=== PATIENT | female | born 1965 | race African-American/Black ===

== ENCOUNTER 2022-07-11 09:30 | Inpatient (IN) | payer SELFPAY ==
[~2022-07-11] VITALS: Ht 170.2 cm; Wt 64.1 kg
[2022-07-11 10:19] LABS: Basophils # (auto) 0 10 ^3/uL (0-0.2); Eosinophils # (auto) 0 10 ^3/uL (0-0.8); Eosinophils % (auto) 0.1 % (0.0-7.0); Hematocrit 35.2 % (36.0-46.0); Monocytes # (auto) 0.5 10 ^3/uL (0-1.3); Neutrophils # (auto) 2.7 10 ^3/uL (1.6-8.6); Nucleated Red Blood Cells % 0.2 %
[2022-07-11 10:21] LABS: Basophils % (auto) 0.8 % (0.0-2.0); Hemoglobin 11.2 g/dL (12.2-16.2); Lymphocytes # (auto) 1.3 10 ^3/uL (0.4-5.4); Lymphocytes % (auto) 27.9 % (10.0-50.0); Mean Corpuscular Hemoglobin 26.2 pg (28.0-32.0); Mean Corpuscular Hgb Conc. 31.9 g/dL (32.0-36.0); Mean Corpuscular Volume 82.1 fL (80.0-100.0); Neutrophils % (auto) 60.2 % (37.0-80.0); Red Blood Cells 4.29 10^6/uL (4.0-5.20); Red Cell Distribution Width 17.1 % (11.8-14.3); White Blood Cell 4.6 10^3/uL (4.4-10.8)
[2022-07-11 10:31] LABS: Albumin 3.7 g/dL (3.4-5.0); Calcium 8.7 mg/dL (8.5-10.1); Potassium 3.6 mmol/L (3.5-5.1)
[2022-07-11 10:38] LABS: Bilirubin, Total 0.4 mg/dL (0.2-1.0); Total Protein 7.5 g/dL (6.4-8.2)
[2022-07-11] MEDS ORDERED: FUROSEMIDE 40 MG/4 ML VIAL IV ONE (14:30)
[2022-07-11] MEDS ORDERED: ACETAMINOPHEN 325 MG TAB PO PRN (15:45)
[2022-07-11] MEDS ORDERED: ONDANSETRON HCL 4 MG/2 ML VIAL IV PRN (15:45)
[2022-07-11] MEDS ORDERED: PANTOPRAZOLE 40 MG/10 ML VIAL INJ IV ONE (15:45)
[2022-07-11 16:16] LABS: Urine Bacteria FEW /hpf (None Seen); Urine Blood Negative /uL (Negative); Urine Specific Gravity 1.005 (1.001-1.035); Urine WBC <1 /hpf (0 - 5)
[2022-07-11 16:32] LABS: Cholesterol 154 mg/dL (< 200); LDL Cholesterol 55 mg/dL (< 100); Triglycerides 65 mg/dL (< 150)
[2022-07-11 16:35] LABS: HDL Cholesterol 97 mg/dL (40-59)
[2022-07-12 05:58] LABS: Albumin 3.4 g/dL (3.4-5.0); Bilirubin, Total 0.4 mg/dL (0.2-1.0); Calcium 8.4 mg/dL (8.5-10.1); Potassium 3.6 mmol/L (3.5-5.1)
[2022-07-12 06:06] LABS: Basophils # (auto) 0 10 ^3/uL (0-0.2); Basophils % (auto) 0.8 % (0.0-2.0); Eosinophils # (auto) 0 10 ^3/uL (0-0.8); Eosinophils % (auto) 0.3 % (0.0-7.0); Hematocrit 33.1 % (36.0-46.0); Lymphocytes # (auto) 1.7 10 ^3/uL (0.4-5.4); Lymphocytes % (auto) 33.5 % (10.0-50.0); Mean Corpuscular Hemoglobin 27.2 pg (28.0-32.0); Mean Corpuscular Hgb Conc. 33.2 g/dL (32.0-36.0); Mean Corpuscular Volume 81.8 fL (80.0-100.0); Monocytes # (auto) 0.4 10 ^3/uL (0-1.3); Monocytes % (auto) 8.7 % (0.0-12.0); Neutrophils # (auto) 2.9 10 ^3/uL (1.6-8.6); Neutrophils % (auto) 56.7 % (37.0-80.0); Nucleated Red Blood Cells % 0.3 %; Red Blood Cells 4.05 10^6/uL (4.0-5.20); Red Cell Distribution Width 16.9 % (11.8-14.3); White Blood Cell 5.1 10^3/uL (4.4-10.8)
[2022-07-12 09:30] VITALS: BP 100/60
[2022-07-12] MEDS ORDERED: PANTOPRAZOLE 40 MG/10 ML VIAL INJ IV SCH (10:00)
[2022-07-12] MEDS ORDERED: ENOXAPARIN SOD 40 MG/0.4 ML SYRINGE SC SCH (10:00)
[2022-07-12] MEDS ORDERED: FUROSEMIDE 20 MG/2 ML VIAL IV SCH (10:00)
[2022-07-12] MEDS ORDERED: METO25TA5 PO (11:20)
[2022-07-12] MEDS ORDERED: LOSA-69 PO ×2 (11:20→11:22)
[2022-07-12 12:30] VITALS: BP 147/79
[2022-07-12] MEDS ORDERED: FURO1TAB33 PO (14:23)
[2022-07-12] MEDS ORDERED: ASPI1TAB20 PO (14:51)
[2022-07-12 15:07] VITALS: BP 147/79
[2022-07-12 16:32] VITALS: BP 142/72
[2022-07-12 16:36] VITALS: BP 142/72
== END 2022-07-12 19:18 | disposition home or self-care (01) | DRG 291 ==
LOC: ER 09:30 → OVERFLOW 15:40 → EAST 07-12 07:49
PROVIDERS: ADMIT Nurse Practitioner Family; ATTEND Nurse Practitioner Acute Care
DX: I11.0 Hypertensive heart disease with heart failure (principal); I50.31 Acute diastolic (congestive) heart failure; U07.1 COVID-19; I82.403 Acute embolism and thrombosis of unspecified deep veins of lower extremity, bilateral; I69.354 Hemiplegia and hemiparesis following cerebral infarction affecting left non-dominant side; D64.9 Anemia, unspecified; E07.9 Disorder of thyroid, unspecified; E03.9 Hypothyroidism, unspecified; Z88.0 Allergy status to penicillin; Z79.82 Long term (current) use of aspirin; Z79.899 Other long term (current) drug therapy; Z80.9 Family history of malignant neoplasm, unspecified; Z90.710 Acquired absence of both cervix and uterus; Z88.8 Allergy status to other drugs, medicaments and biological substances; Z91.14 Patient's other noncompliance with medication regimen; Z98.84 Bariatric surgery status
CPT/HCPCS: 36415; 71045; 80053; 80061; 81001; 83036; 83880; 84443; 84484; 85025; 87426; 93306; 93971; C9113; G0378

== ENCOUNTER 2023-01-15 22:04 | Emergency (ER) | payer BC, OTHER ==
[~2023-01-15] VITALS: Ht 152.4 cm; Wt 64.4 kg
[~2023-01-15 22:04] MED LIST: ASPI1TAB20 PO; FURO1TAB33 PO; LOSA50TA46 PO; METO25TA5 PO
[2023-01-15 22:08] VITALS: BP 152/74; PULSE 69; RESP 16; O2SAT 100
== END 2023-01-16 01:32 | disposition left against medical advice (07) ==
LOC: ER 22:04
DX: N64.4 Mastodynia (principal); Z53.21 Procedure and treatment not carried out due to patient leaving prior to being seen by health care provider

== ENCOUNTER → 2023-11-28 | Outpatient (CLI) | payer OTHER ==
[~2023-11-28] MED LIST changes: +LOSA-534 PO; -LOSA50TA46 PO
== END | disposition home or self-care (01) ==
LOC: XYW 09:20
PROVIDERS: ATTEND Student in an Organized Health Care Education/Training Program
DX: I51.89 Other ill-defined heart diseases (principal); R07.9 Chest pain, unspecified
CPT/HCPCS: 93306

== ENCOUNTER → 2024-01-06 | Outpatient (CLI) | payer OTHER ==
[~2024-01-06] VITALS: Ht 167.6 cm; Wt 66.2 kg
[2024-01-06] MEDS: ADENOSINE 56 MG in GIVE UN-DILUTED 0 ML IV STA (12:49)
== END | disposition home or self-care (01) ==
LOC: XYW 10:26
PROVIDERS: ATTEND Student in an Organized Health Care Education/Training Program
DX: R07.9 Chest pain, unspecified (principal); E78.5 Hyperlipidemia, unspecified; I50.9 Heart failure, unspecified
CPT/HCPCS: 78452; 93017; A9500; J0153

== ENCOUNTER 2024-06-10 11:07 | Inpatient (IN) | payer OTHER, MEDICAID ==
[~2024-06-10] VITALS: Ht 165.1 cm; Wt 55.7 kg
--- NOTE | 2024-06-10 11:34 | ECG ---
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
[2024-06-10] MEDS ORDERED: hydrALAZINE HCL 20 MG/ML VL IV PRN (11:45)
--- NOTE | 2024-06-10 11:48 | ED.PDOC ---
HPI Comments Tomasa Olivera is a 59-year-old female patient who presents to ED with chief complaint of bilateral lower limb swelling and heaviness which started three days ago, associated with intermittent dyspnea and functional class III. Patient says she has been compliant with medication, was seen by PCP as outpatient (Dr. Coleman) who increase dose of furosemide to 40 mg p.o. daily, but did not respond, prompting her visit to the ED. denies chest pain, palpitation, syncope, nausea, vomiting, diarrhea, sick contacts, bleeding, recent travel and other motor or sensory deficits. 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 Family history: Mother had throat cancer Social history: Lives in [place] with [id number]. Denies tobacco, alcohol and other drug abuse Allergies: Diphenhydramine, iodine, penicillin Home medication: Aspirin 81 mg p.o. daily, furosemide 20 mg p.o. daily, losartan 50 mg p.o. daily, metoprolol 25 mg p.o. b.i.d., iron pill Chief Complaint: Extremity Swelling Time Seen by MD: 11:10 Primary Care Provider: JENNIFER Allergies: Coded Allergies: Diphenhydramine (Verified Allergy, Unknown, 01/06/24) Iodine (Verified Allergy, Unknown, 01/06/24) Penicillins (Verified Allergy, Unknown, 01/06/24) Home Meds Active Scripts Aspirin (Aspir-81) 81 Mg Tab, 1 TAB PO DAILY, #30 TAB 5 Refills Prov:BELIA DUNCAN [employer] 07/12/22 Furosemide (Lasix) 20 Mg Tb, 1 TAB PO DAILY, #60 TAB 1 Refill Prov:BELIA DUNCAN [employer] 07/12/22 Reported Medications Losartan Potassium (Losartan Potassium) 50 Mg Tab, 1 TAB PO DAILY, #30 TAB 5 Refills 07/12/22 Metoprolol Tartrate (Metoprolol Tartrate) 25 Mg Tab, 25 MG PO BID for 30 Days, MG 07/12/22 Mode of Arrival: Wheelchair Past Medical History PAST MEDICAL HISTORY: CVA, HTN, Thyroid Surgical History: Hysterectomy DIRECTOR REHABILITATION PROGRAM History: Denies all DIRECTOR REHABILITATION PROGRAM Hx Family History Family History: Family hx of Cancer Social History Smoker: Non-Smoker Alcohol: Denies ETOH Use Drugs: Denies Drug Use Lives In: Home Physical Exam General Appearance: No Apparent Distress, Thin HEENT: Normal ENT Inspection, Pharynx Normal, TMs Normal Neck: Full Range of Motion, Non-Tender, Normal, Normal Inspection Respiratory: Chest Non-Tender, No Accessory Muscle Use, No Respiratory Distress, Rales Cardiovascular: Diastolic Murmur, No Edema, No JVD, No Gallop, Normal Peripheral Pulses, Regular Rate/Rhythm, Systolic Murmur Breast Exam: Deferred Gastrointestinal: No Organomegaly, Non Tender, No Pulsatile Mass, Normal Bowel Sounds, Soft Genitalia: Deferred Pelvic: Deferred Rectal: Deferred Extremities: Leg edema, No calf tenderness, Normal capillary refill, Normal inspection, Normal range of motion, Non-tender, Swelling 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 Was a procedure done?: No CP Differential Dx Differential Diagnosis: Heart Failure, Renal Failure Differential Diagnosis: HTN Essential X-Ray, Labs, Meds, VS Vital Signs Date Time Temp Pulse Resp B/P (MAP) Pulse Ox O2 Delivery O2 Flow Rate FiO2 06/10/24 11:31 58 06/10/24 11:17 97.6 60 18 182/76 (111) 99 170/82 (111) Lab Test 06/10/24 11:49 Range/Units White Blood Count 4.0 L 4.4-10.8 10^3/uL Red Blood Count 3.84 L 4.0-5.20 10^6/uL Hemoglobin 10.4 L 12.2-16.2 g/dL Hematocrit 32.0 L 36.0-46.0 % Mean Corpuscular Volume 83.3 80.0-100.0 fL Mean Corpuscular Hemoglobin 27.1 L 28.0-32.0 pg Mean Corpuscular Hemoglobin Concent 32.5 32.0-36.0 g/dL Red Cell Distribution Width 17.8 H 11.8-14.3 % Platelet Count 138 L 140-450 10^3/uL Mean Platelet Volume 9.4 6.9-10.8 fL Neutrophils (%) (Auto) 57.8 37.0-80.0 % Lymphocytes (%) (Auto) 32.6 10.0-50.0 % Monocytes (%) (Auto) 7.9 0.0-12.0 % Eosinophils (%) (Auto) 0.6 0.0-7.0 % Basophils (%) (Auto) 1.1 0.0-2.0 % Neutrophils # (Auto) 2.3 1.6-8.6 10 ^3/uL Lymphocytes # (Auto) 1.3 0.4-5.4 10 ^3/uL Monocytes # (Auto) 0.3 0-1.3 10 ^3/uL Eosinophils # (Auto) 0 0-0.8 10 ^3/uL Basophils # (Auto) 0 0-0.2 10 ^3/uL Nucleated Red Blood Cells 0.3 % Prothrombin Time 11.5 9.3-11.8 sec Prothrombin Time INR 1.09 0.9-1.15 Activated Partial Thromboplast Time 29.8 24.5-34.5 SEC Sodium Level 141 136-145 mmol/L Potassium Level 4.0 3.5-5.1 mmol/L Chloride Level 108 H 98-107 mmol/L Carbon Dioxide Level 26 20-31 mmol/L Anion Gap 7 5-15 Blood Urea Nitrogen 16 9-23 mg/dL Creatinine 0.93 0.550-1.02 mg/dL Glomerular Filtration Rate Calc 70 >90 mL/min BUN/Creatinine Ratio 17.2 10.0-20.0 Serum Glucose 77 74-106 mg/dL Calcium Level 9.3 8.7-10.4 mg/dL Phosphorus Level 4.1 2.4-5.1 mg/dL Magnesium Level 2.1 1.6-2.6 mg/dL Total Bilirubin 0.6 0.2-1.0 mg/dL Aspartate Amino Transferase (AST) 15 13-40 U/L Alanine Aminotransferase (ALT) < 9 7-40 U/L Alkaline Phosphatase 76 46-116 U/L B-Type Natriuretic Peptide 816.50 0-100 pg/mL Total Protein 7.2 5.7-8.2 g/dL Albumin 4.1 3.2-4.8 g/dL Thyroid Stimulating Hormone (TSH) 2.02 0.55-4.78 uIU/mL X-Ray, Labs, Meds, VS Comment Revealed checks x-ray, vital signs and laboratory workup. BNP above 700. Time of 1ST Reevaluation: 13:56 Reevaluation 1ST: Unchanged Patient Education/Counseling: Diagnosis, Treatment, Prognosis Family Education/Counseling: Diagnosis, Treatment, Prognosis Departure 1 Departure Time of Disposition: 13:56 Impression: Primary Impression: Heart failure Disposition: 09 ADMITTED INPATIENT Condition: Serious Additional Instructions: Patient will required IV diuretics, since increase in p.o. diuretics did not margaret efit patient. She will be admitted Critical Care Note Critical Care Time?: No Stability Stability form required: No Heart Score Heart Score: Heart Score Response (Comments) Value History N/A 0 EKG N/A 0 Age N/A 0 Risk Factors N/A 0 Troponin N/A 0 Total 0 BARRINGTON STRAUSS RESIDENT Jun 10, 2024 11:48
--- NOTE | 2024-06-10 11:52 | DVH ---
EXAM: XY CHEST XRAY 1 VIEW Indication: CHF Technique: Single frontal view of the chest was obtained Comparison: XY CHEST PORTABLE on DOS: 07/11/22 FINDINGS: Lines and Tubes: None Lungs: No focal consolidation. Pleura: No effusion. No pneumothorax. Cardiomediastinal contours: Cardiomegaly. Vascular stent projects over the mediastinum. Tortuous and enlarged aortic shadow. Bones: No acute osseous abnormality. IMPRESSION: Cardiomegaly. No acute cardiopulmonary disease.
[2024-06-10 12:06] LABS: Basophils # (auto) 0 10 ^3/uL (0-0.2); Basophils % (auto) 1.1 % (0.0-2.0); Eosinophils # (auto) 0 10 ^3/uL (0-0.8); Eosinophils % (auto) 0.6 % (0.0-7.0); Hemoglobin 10.4 g/dL (12.2-16.2); Lymphocytes # (auto) 1.3 10 ^3/uL (0.4-5.4); Lymphocytes % (auto) 32.6 % (10.0-50.0); Mean Corpuscular Hemoglobin 27.1 pg (28.0-32.0); Mean Corpuscular Hgb Conc. 32.5 g/dL (32.0-36.0); Mean Corpuscular Volume 83.3 fL (80.0-100.0); Monocytes # (auto) 0.3 10 ^3/uL (0-1.3); Monocytes % (auto) 7.9 % (0.0-12.0); Neutrophils # (auto) 2.3 10 ^3/uL (1.6-8.6); Neutrophils % (auto) 57.8 % (37.0-80.0); Nucleated Red Blood Cells % 0.3 %; Platelet Count (auto) 138 10^3/uL (140-450); Red Blood Cells 3.84 10^6/uL (4.0-5.20); Red Cell Distribution Width 17.8 % (11.8-14.3)
[2024-06-10 12:19] LABS: INR 1.09 (0.9-1.15); Partial Thromboplastin Time 29.8 SEC (24.5-34.5); Prothrombin Time 11.5 sec (9.3-11.8)
[2024-06-10 13:32] LABS: Albumin 4.1 g/dL (3.2-4.8); Alkaline Phosphatase 76 U/L (46-116); Anion Gap 7 (5-15); Aspartate Aminotransferase 15 U/L (13-40); BUN/Creatinine Ratio 17.2 (10.0-20.0); Bilirubin, Total 0.6 mg/dL (0.2-1.0); Blood Urea Nitrogen 16 mg/dL (9-23); Calcium 9.3 mg/dL (8.7-10.4); Carbon Dioxide 26 mmol/L (20-31); Glucose 77 mg/dL (74-106); Magnesium 2.1 mg/dL (1.6-2.6); Phosphorus 4.1 mg/dL (2.4-5.1); Sodium 141 mmol/L (136-145); Total Protein 7.2 g/dL (5.7-8.2)
[2024-06-10 13:37] LABS: Alanine Aminotransferase < 9 U/L (7-40); Chloride 108 mmol/L (98-107)
[2024-06-10] MEDS: LOSARTAN POTASSIUM 50 MG TAB PO ONE (17:34)
[2024-06-10] MEDS: FUROSEMIDE 40 MG/4 ML VIAL IV ONE (17:35)
[2024-06-10 17:45] VITALS: PULSE 61; RESP 18; O2SAT 98
[2024-06-10 17:57] LABS: Urine Bacteria FEW /hpf (None Seen); Urine Blood 1+ /uL (Negative); Urine Clarity Clear (Clear); Urine Color Yellow (Yellow); Urine Mucus FEW (None Seen); Urine Protein, UAD 1+ (Negative); Urine Specific Gravity 1.027 (1.001-1.035); Urine Squamous Epithelial Cell FEW /hpf (<5); Urine Urobilinogen 3 mg/dL (Negative); Urine WBC 3 /HPF (0-5)
[2024-06-10 18:01] LABS: Amphetamine Screen, Urine Neg (NEGATIVE); Barbiturate Scree,Urine Neg (NEGATIVE); Benzodiazephine Screen, Urine Neg (NEGATIVE); Cannabinoid Screen, Urine Neg (NEGATIVE); Cocaine Screen, Urine Neg (NEGATIVE); Opiate Scree,Urine Neg (NEGATIVE); Phencyclidine Screen, Urine Neg (NEGATIVE)
[2024-06-10 19:30] VITALS: PULSE 70; RESP 16; O2SAT 99
[2024-06-10] MEDS: FERROUS SULFATE 325mg EC TAB PO SCH (19:54)
[2024-06-10] MEDS ORDERED: FUROSEMIDE 40 MG/4 ML VIAL IV SCH (22:00)
[2024-06-10] MEDS ORDERED: NITROGLYCERIN 0.4 MG SL TAB SL PRN (22:15)
--- NOTE | 2024-06-10 22:17 | DVHHPRES ---
History of Present Illness Resident Creating Document: MIKE NIDAYE RESDIENT History of Present Illness This is a 59-year-old female with past medical history of hypertension, CVA (with motor deficits on the left side, uses walker for the mobility), COVID-19, thoracic aortic aneurysm (status post endovascular treatment) heart failure with mildly reduced ejection fraction (EF from December 06, 2023 45%) neuropathy, brought to the hospital due to worsening of bilateral lower limb swelling. Per patient, the patient has leg swelling which has worsened since 3 days. She also reports dyspnea, and generalized weakness. Patient denies, chest pain, palpitation, nausea, vomiting, diarrhea, sick contact, any motor or sensory deficits. PMHx:hypertension, CVA (with motor deficits on the left side, uses walker for the mobility), COVID-19, thoracic aortic aneurysm (status post endovascular treatment) heart failure with mildly reduced ejection fraction EF from December 06, 2023 45%) neuropathy PSHx: Aortic aneurysm repair, hysterectomy, Family history: Mother had throat cancer Social history: Patient lives with family at home, denies tobacco, alcohol or any other drug use. Patient use walker for the mobility. Home medication: Aspirin, furosemide, losartan, metoprolol, iron pill Allergic history: Diphenhydramine, iodine, penicillin Review of Systems Review of Systems General: Reports generalized weakness HEENT: No headaches, visiual changes, hearing loss, tinnitus, nasal congestion and discharge, and sore throat. Cardiovascular: Denies chest pain, palpitations, dyspnea on exertion, orthopnea, or claudication. Respiratory: Reports shortness of breaths Gastrointestinal: Denies nausea, vomiting, dysphagia, odynophagia, heartburn, abdominal pain, flatulence, bloating, diarrhea, constipation, change in stool, or blood in stool. Genitourinary: No dysuria, hematuria, discharge, frequency, urgency, nocturia, incontinence, and urinary retention. Endocrine: No heat or cold intolerance, polydipsia, polyuria, and polyphagia. Neurological: No dizziness, extremity weakness and numbness, tremors, gait disturbance, seizures, and memory impairment. Psychiatric: Denies depression, anxiety,or insomnia. Musculoskeletal: Reports bilateral lower limb swelling and heaviness Skin: No rashes, itching, skin lesion, changes in hair, nail, skin texture and breast. Hematologic/Lymphatic: Denies easy bruising, bleeding tendencies, or lymph node enlargement. Allergies: Coded Allergies: Diphenhydramine (Verified Allergy, Unknown, 01/06/24) Iodine (Verified Allergy, Unknown, 01/06/24) Penicillins (Verified Allergy, Unknown, 01/06/24) Medications Current Medications Medications Dose Ordered Sig/Darlene Route Start Time Stop Time Status Last Admin Dose Admin Furosemide 40 mg TID IV 06/10/24 22:00 Aspirin 81 mg DAILY PO 06/11/24 10:00 Losartan Potassium 50 mg DAILY PO 06/11/24 10:00 Metoprolol Succinate 25 mg DAILY PO 06/11/24 10:00 Ferrous Sulfate 325 mg BIDWM PO 06/10/24 18:00 06/10/24 19:54 325 MG Hydralazine HCl 10 mg Q6HP PRN IV 06/10/24 11:45 Exam Vital Signs Vital Signs Date Time Temp Pulse Resp B/P (MAP) Pulse Ox O2 Delivery O2 Flow Rate FiO2 06/10/24 19:30 70 16 99 Room Air* 0 21 06/10/24 19:30 98.9 150/71 (97) 98.9 Exam General Appearance: Alert, Oriented X3, Cooperative, No acute distress HEENT: Atraumatic, PERRLA, EOMI, Mucous membrane moist/pink Respiratory: Bilateral lower zone crackles Cardiovascular: Regular rate, Normal S1, Normal S2, No murmurs, no chest wall tenderness Abdominal: Normal bowel sounds, Soft, No tenderness, No hepatospenomegaly, No masses Extremities: Bilateral lower limb grade 2 pedal edema Skin: No rashes, No breakdown, No significant lesion Neuro: Normal gait, Normal speech, Strength at 5/5 X4 ext, Normal tone, Sensation intact, Cranial nerves 3-12 NL, Reflexes 2+ Psych/Mental Status: Mental status NL, Mood NL Labs/Xrays Labs Test 06/10/24 11:49 06/10/24 11:21 Range/Units White Blood Count 4.0 L 4.4-10.8 10^3/uL Red Blood Count 3.84 L 4.0-5.20 10^6/uL Hemoglobin 10.4 L 12.2-16.2 g/dL Hematocrit 32.0 L 36.0-46.0 % Mean Corpuscular Volume 83.3 80.0-100.0 fL Mean Corpuscular Hemoglobin 27.1 L 28.0-32.0 pg Mean Corpuscular Hemoglobin Concent 32.5 32.0-36.0 g/dL Red Cell Distribution Width 17.8 H 11.8-14.3 % Platelet Count 138 L 140-450 10^3/uL Mean Platelet Volume 9.4 6.9-10.8 fL Neutrophils (%) (Auto) 57.8 37.0-80.0 % Lymphocytes (%) (Auto) 32.6 10.0-50.0 % Monocytes (%) (Auto) 7.9 0.0-12.0 % Eosinophils (%) (Auto) 0.6 0.0-7.0 % Basophils (%) (Auto) 1.1 0.0-2.0 % Neutrophils # (Auto) 2.3 1.6-8.6 10 ^3/uL Lymphocytes # (Auto) 1.3 0.4-5.4 10 ^3/uL Monocytes # (Auto) 0.3 0-1.3 10 ^3/uL Eosinophils # (Auto) 0 0-0.8 10 ^3/uL Basophils # (Auto) 0 0-0.2 10 ^3/uL Nucleated Red Blood Cells 0.3 % Prothrombin Time 11.5 9.3-11.8 sec Prothrombin Time INR 1.09 0.9-1.15 Activated Partial Thromboplast Time 29.8 24.5-34.5 SEC Sodium Level 141 136-145 mmol/L Potassium Level 4.0 3.5-5.1 mmol/L Chloride Level 108 H 98-107 mmol/L Carbon Dioxide Level 26 20-31 mmol/L Anion Gap 7 5-15 Blood Urea Nitrogen 16 9-23 mg/dL Creatinine 0.93 0.550-1.02 mg/dL Glomerular Filtration Rate Calc 70 >90 mL/min BUN/Creatinine Ratio 17.2 10.0-20.0 Serum Glucose 77 74-106 mg/dL Calcium Level 9.3 8.7-10.4 mg/dL Phosphorus Level 4.1 2.4-5.1 mg/dL Magnesium Level 2.1 1.6-2.6 mg/dL Total Bilirubin 0.6 0.2-1.0 mg/dL Aspartate Amino Transferase (AST) 15 13-40 U/L Alanine Aminotransferase (ALT) < 9 7-40 U/L Alkaline Phosphatase 76 46-116 U/L B-Type Natriuretic Peptide 816.50 0-100 pg/mL Total Protein 7.2 5.7-8.2 g/dL Albumin 4.1 3.2-4.8 g/dL Thyroid Stimulating Hormone (TSH) 2.02 0.55-4.78 uIU/mL Urine Color Yellow Yellow Urine Clarity Clear Clear Urine pH 6.0 5.0-9.0 Urine Specific [place] 1.027 1.001-1.035 Urine Protein 1+ H Negative Urine Ketones Trace Negative Urine Blood 1+ H Negative /uL Urine Nitrite Negative Negative Urine Bilirubin Negative Negative Urine Urobilinogen 3 H Negative mg/dL Urine Leukocyte Esterase Negative Negative /uL Urine RBC 22 0 - 4 /hpf Urine Microscopic WBC 3 0-5 /HPF Urine Squamous Epithelial Cells Few <5 /hpf Urine Bacteria Few H None Seen /hpf Urine Mucus Few None Seen Urine Glucose Normal Normal mg/dL Urine Opiates Screen Neg NEGATIVE Urine Fentanyl Screen Neg NEGATIVE Urine Barbiturates Screen Neg NEGATIVE Urine Phencyclidine Screen Neg NEGATIVE Urine Amphetamines Screen Neg NEGATIVE Urine Benzodiazepines Screen Neg NEGATIVE Urine Cocaine Screen Neg NEGATIVE Urine Cannabinoids Screen Neg NEGATIVE Assessment/Plan Assessment/Plan Hypertensive emergency leading to heart failure Acute on chronic heart failure with mildly reduced ejection fraction History of aortic aneurysm, status post endovascular repair History of hypertension Chest x-ray shows cardiomegaly BNP is raised at 816 Check echocardiogram Lasix 40 mg b.i.d. Continue losartan and metoprolol and aspirin Hydralazine p.r.n. Histories of CVA Continue home meds History of chronic anemia Hb is 10.4 Continue iron pill DIET: Cardiac the DVT PROPHYLAXIS: Lovenox CODE STATUS: Goal of care discussed for more than 21 minutes, full code DISPOSITION: Med/surge Patient's status and paln discussed with the patient brother at the bedside. Case discussed with Dr. Brooks Plan discussed with: Patient, Other (RN) Date of Service: Jun 10, 2024 Billing Provider: HIRAL BROOKS MD Common Visit Codes: [id number] INP/OBS CARE (HIGH) MIKE NDIAYE RESDIENT Jun 10, 2024 22:17 HIRAL BROOKS MD Jun 11, 2024 23:10
[2024-06-11] VITALS (11 sets, daily range): BP systolic 112–162; BP diastolic 57–83; PULSE 54–67; RESP 16–18; TEMP 97.3–98.3; O2SAT 95–100
[2024-06-11] MEDS: ENOXAPARIN SOD 40 MG/0.4 ML SYRINGE SC ONE (00:06)
[2024-06-11] MEDS: FUROSEMIDE 40 MG/4 ML VIAL IV ONE (00:06)
[2024-06-11 06:34] LABS: Basophils # (auto) 0 10 ^3/uL (0-0.2); Basophils % (auto) 0.8 % (0.0-2.0); Eosinophils # (auto) 0 10 ^3/uL (0-0.8); Eosinophils % (auto) 0.8 % (0.0-7.0); Hematocrit 31.5 % (36.0-46.0); Hemoglobin 10.4 g/dL (12.2-16.2); Lymphocytes # (auto) 1.4 10 ^3/uL (0.4-5.4); Lymphocytes % (auto) 31.4 % (10.0-50.0); Mean Corpuscular Hemoglobin 27.7 pg (28.0-32.0); Mean Corpuscular Hgb Conc. 33.1 g/dL (32.0-36.0); Mean Corpuscular Volume 83.6 fL (80.0-100.0); Monocytes # (auto) 0.4 10 ^3/uL (0-1.3); Monocytes % (auto) 9.7 % (0.0-12.0); Neutrophils # (auto) 2.6 10 ^3/uL (1.6-8.6); Neutrophils % (auto) 57.3 % (37.0-80.0); Nucleated Red Blood Cells % 0.2 %; Platelet Count (auto) 130 10^3/uL (140-450); Red Blood Cells 3.77 10^6/uL (4.0-5.20); Red Cell Distribution Width 17.4 % (11.8-14.3); White Blood Cell 4.5 10^3/uL (4.4-10.8)
[2024-06-11 06:49] LABS: Alkaline Phosphatase 72 U/L (46-116); Anion Gap 9 (5-15); BUN/Creatinine Ratio 17.6 (10.0-20.0); Blood Urea Nitrogen 16 mg/dL (9-23); Calcium 9.5 mg/dL (8.7-10.4); Carbon Dioxide 28 mmol/L (20-31); Chloride 105 mmol/L (98-107); Glucose 76 mg/dL (74-106); Magnesium 2.1 mg/dL (1.6-2.6); Sodium 142 mmol/L (136-145)
[2024-06-11 06:50] LABS: Albumin 3.9 g/dL (3.2-4.8); Aspartate Aminotransferase 15 U/L (13-40)
[2024-06-11 06:51] LABS: Bilirubin, Total 0.6 mg/dL (0.2-1.0); Potassium 3.5 mmol/L (3.5-5.1); Total Protein 6.9 g/dL (5.7-8.2)
[2024-06-11 06:52] LABS: Alanine Aminotransferase < 9 U/L (7-40)
[2024-06-11] MEDS: FUROSEMIDE 40 MG/4 ML VIAL IV SCH (08:24)
[2024-06-11] MEDS: ASPirin 81 mg TAB PO SCH (08:24)
[2024-06-11] MEDS: LOSARTAN POTASSIUM 50 MG TAB PO SCH (08:25)
[2024-06-11] MEDS: METOPROLOL SUCCINATE XL 50 MG TAB PO SCH ×2 (08:25→22:00)
--- NOTE | 2024-06-11 11:37 | DVH ---
LEFT LOWER EXTREMITY VENOUS DOPPLER CLINICAL HISTORY: dvt TECHNIQUE: Lower extremity venous Doppler study was performed. COMPARISON: US LT UPPER DVT on DOS: 07/11/22 FINDINGS: The left common femoral, superficial femoral, popliteal, posterior tibial veins and trifurcation appe ar patent with normal augmentation, phasicity, compressibility and color-flow. . IMPRESSION: 1. No sonographic evidence of DVT in the left leg. HS:Y
--- NOTE | 2024-06-11 11:53 | DVHSR ---
APPROVED REPORT EXAM: Two-dimensional and M-mode echocardiogram with Doppler and color Doppler. Blood Pressure: 144/78 mmHg INDICATION Heart Failure RISK FACTORS Height: 5'5", Weight: 136 DIMENSIONS LVDd5.0 (3.8-5.7cm)LA (2D)4.2 (1.9-4.0cm)Aortic Root3.7 (2.0-3.7cm) LVDs3.9 (2.5-4.0cm)LA (MM) (1.9-4.0cm)Aortic Cusp Exc1.6 (1.5-2.0cm) EF (%) 50.0 (55-70%)Rt. Atrium4.3 (1.9-4.0cm)Asc. Aorta3.9 cm IVSd0.7 (0.7-1.1cm)RV (D) (1.8-2.4cm) PWd1.0 (0.7-1.1cm) Mitral Valve MitralMitral Stenosis E wave0.70m/sMV Mean GR.mmHg A wave0.96m/sMV Peak GR.mmHg E/A ratio0.72D MVAcm2 DECEL [id number] 1/2 Timems Aortic Valve Aortic ValveAortic Stenosis V11.10m/Lana Mean GR.4mmHg V21.33m/Lana Peak GR.7mmHg LVOT Diameter2.1 (1.8-2.4cm)Doppler AVA2.86cm2 AI P 1/2 Jtbc395.89ms Pulmonic Valve V20.78m/s Tricuspid Valve TR Velocity2.12m/s [id number] LEFT VENTRICLE The left ventricle is of normal size. Wall thickness is normal. Ejection fraction is low normal and is estimated at 50%. There is likely severe hypokinesis of the basal and mid posterior wall. There is grade II diastolic dysfunction. E to E prime ratio is in the normal range. RIGHT VENTRICLE The right ventricle is of normal size. Systolic function is normal. ATRIA The left atrium is moderately to severely dilated in size. Right atrium is moderately to severely di lated in size. MITRAL VALVE Leaflets appear to be of normal structure. There is pfwoexlp-wu-knqaye mitral regurgitation with an eccentric jet that is laterally and posteriorly directed. This is not adequately assessed during the study today and could be under estimated. PULMONIC VALVE Likely normal. TRICUSPID VALVE Normal structure and function. There is mild tricuspid regurgitation. PA systolic pressure is estim ated at 25-30 mm Hg. AORTIC VALVE Normal in structure. There is kfxr-zf-ehmjelay central regurgitation. No significant stenosis. GREAT VESSELS The aortic root measures 3.7 cm at the level of the sinuses of Valsalva. Proximal ascending aorta me asured 3.9 cm. 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 PERICARDIAL EFFUSION There is trace pericardial effusion. IVC is dilated in size and does not collapse normally with insp iration. 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 Normal left ventricular size with low-normal systolic function. Ejection fraction is estimated at 50%. There is likely hypokinesis of the basal and mid posterior wall. Normal right ventricular size and systolic function. Xhqztnlz-[id number]-[id number] biatrial enlargement. Letjupbo-ik-[id number] mitral regurgitation. The jet is eccentric and could be under estimated. Ruph-od-nuaiyatu aortic insufficiency. The aortic root is of normal size. The dissection in the descending aorta was not visualized on an echo done in November of 2023; otherwise, there does not appear to be significant change compared to the prior echo.
--- NOTE | 2024-06-11 14:17 | DVHPNRES ---
Progress Note Date Seen: Jun 11, 2024 Resident Creating Document: JAI PERDOMOMALACHI RESIDENT Medical Necessity Reason Pt with a Central, PICC or Fol: No Subjective Review of Systems Patient is a 59-year-old female with a past medical history of hypertension, thoracic aortic dissection/aneurysm repair in 2019, CVA with residual left-sided weakness, heart failure with mildly reduced ejection fraction 45% according to echo in November 2023 came to the ED with a chief complaint of worsening bilateral lower extremity swelling and shortness of breath. Patient was that about 4 days ago he started to have bilateral lower extremity swelling associated with the dyspnea on exertion and generalized weakness. Patient denied recent flu like symptoms of cough, congestion, fever or chills. Patient denied chest pain, palpitations, nausea, vomiting, abdominal pain. Patient contacted her PCP for bilateral lower extremity swelling who recommended to increase the dose of furosemide but it did not relieve with the symptoms following which she came to the hospital for further evaluation. Past medical history: hypertension, thoracic aortic dissection/aneurysm repair in 2019, CVA with residual left-sided weakness, heart failure with mildly reduced ejection fraction 45%, peripheral neuropathy Past surgical history: Aortic aneurysm/dissection repair, hysterectomy Social history: Patient lives with the family and denies smoking, alcohol, drug use, uses walker for mobility Home medications: Aspirin, furosemide, losartan, metoprolol tartrate Review of systems At the time of examination patient reported no shortness a breath while on room air. Reports her lower extremity swelling has improved and she is feeling better. Echocardiogram reported extensive dissection throughout the visualized descending aorta with flow into lumens which was not visualized on echo done in November 2023 Patient reported since the last 3-4 months she has intermittent episode of chest pain substernal which radiates to the back, she has to sit up and the pain is relieved on its own after sometime. Currently patient does not report of any chest pain or palpitations. Objective vital signs Vital Sign Date Time Temp Pulse Resp B/P (MAP) Pulse Ox O2 Delivery O2 Flow Rate FiO2 06/11/24 09:00 98.1 61 18 162/72 (102) 100 98.1 06/11/24 08:00 Room Air* 0 21 medications Current Medications Medications Dose Ordered Sig/Darlene Route Start Time Stop Time Status Last Admin Dose Admin Aspirin 81 mg DAILY PO 06/11/24 10:00 06/11/24 08:24 81 MG Losartan Potassium 50 mg DAILY PO 06/11/24 10:00 06/11/24 08:25 50 MG Hydralazine HCl 10 mg Q6HP PRN IV 06/10/24 11:45 Nitroglycerin 0.4 mg Q5MINP PRN SL 06/10/24 22:15 Furosemide 40 mg BIDD IV 06/11/24 10:00 06/11/24 08:24 40 MG Enoxaparin Sodium 40 mg DAILY SC 06/12/24 10:00 Metoprolol Tartrate 50 mg BID PO 06/11/24 22:00 Examination Physical Examination Constitutional: Patient was alert and oriented to time, place and person and does not appear to be in any acute distress. Gen - no pallor, no icterus, no cyanosis, no clubbing, no LAD, 1+ pitting edema the bilateral lower extremities more in the left. Skin - Patients skin is warm and dry.. HEENT - normocephalic, atraumatic, moist mucous membranes. Neck - full ROM, no LAD, no JVD Pulmonary - B/L vesicular breath sounds. no crackles , no wheezing cardiovascular - normal S1,S2 heard. no murmurs heard. Right dorsalis pedis 2+, left dorsalis pedis 1+ (left foot has more swelling), bilateral radial pulses us, no radio-radial or radio-femoral delay GI - soft abdomen without tenderness to palpation. no hepatospleenomegaly. B owel sounds normoactive Neurological - right upper and lower extremity strength 5/5, left upper and lower extremity strength 3/5, left wrist drop, no sensory deficit, no facial droop, no speech difficulty. laboratory and microbiology Laboratory Tests 06/11/24 05:44 Test 06/11/24 05:44 Range/Units Serum Glucose 76 74-106 mg/dL Problem List/Assessment/Plan Problem List/Assessment/Plan Acute on chronic heart failure with preserved ejection fraction Hypertensive emergency H/o thoracic aortic aneurysm/dissection repair Descending aortic dissection, new versus chronic - chest x-ray showed cardiomegaly with no consolidation or interstitial edema. - left lower extremity ultrasound shows no DVT - on furosemide 40 mg IV b.i.d. - metoprolol tartrate 50 mg b.i.d. - losartan 50 mg daily - echocardiogram showed There is extensive dissection throughout the visualized descending aorta with flow into lumens, which was not seen on the previous echo in November of 2023. Ejection fraction is estimated at 50%. - CT angio chest ordered 10:00 a.m. on 03/12/2024. as patient is allergic to iodine, prednisone 50 mg to be given 13 hours, 7 hours, 1 hour before the procedure - strict blood pressure control to be maintained. Hydralazine p.r.n. ordered H/o CVA - residual left-sided weakness - on aspirin and atorvastatin Normocytic hypochromic anemia - chronic - continue to monitor H&H DVT prophylaxis: Enoxaparin 40 mg sc daily PUD prophylaxis: Famotidine 20 mg q.12 hours Goals of care discussed with the patient and the daughter for over 25 minutes. Full code Plan discussed with Dr. Zuñiga Plan discussed with: Patient, Daughter My Orders My Orders Orders - BRENDAN PERDOMO Procedure Category Date Status Time Lt Lower Dvt US 06/11/24 Resulted 10:[address] 06/11/24 Logged Contrast 13:23 Metoprolol Tartrate PHA 06/11/24 In Process Tablet (Lopressor Ta 22:00 Date of Service: Jun 11, 2024 Billing Provider: JOSSUE ZUÑIGA MD Common Visit Codes: [id number] INP/OBS CARE(HIGH) BRENDAN PERDOMO RESIDENT Jun 11, 2024 14:16 JOSSUE ZUÑIGA MD Jun 12, 2024 09:10
[2024-06-11] MEDS ORDERED: LABETALOL HCL 20 MG/4 ML VL IV PRN ×2 (17:45→18:30)
[2024-06-11] MEDS: ATORVASTATIN 20 MG TAB PO SCH (21:52)
[2024-06-11] MEDS: FAMOTIDINE 20 MG TAB PO SCH (21:52)
[2024-06-11] MEDS: predniSONE 20 MG TAB PO ONE (21:52)
[2024-06-11] MEDS ORDERED: METOPROLOL TARTRATE 50 MG TAB PO SCH (22:00)
[2024-06-12] VITALS (12 sets, daily range): BP systolic 120–149; BP diastolic 57–72; PULSE 51–66; RESP 16–18; TEMP 97.2–98.4; O2SAT 92–100
[2024-06-12] MEDS: predniSONE 20 MG TAB PO ONE ×2 (02:56→10:00)
[2024-06-12] MEDS: hydrALAZINE HCL 20 MG/ML VL IV ONE (03:01)
[2024-06-12 06:07] LABS: Basophils # (auto) 0 10 ^3/uL (0-0.2); Basophils % (auto) 0.7 % (0.0-2.0); Eosinophils # (auto) 0.1 10 ^3/uL (0-0.8); Eosinophils % (auto) 1.3 % (0.0-7.0); Hematocrit 35.1 % (36.0-46.0); Hemoglobin 11.3 g/dL (12.2-16.2); Lymphocytes # (auto) 0.6 10 ^3/uL (0.4-5.4); Lymphocytes % (auto) 14.3 % (10.0-50.0); Mean Corpuscular Hgb Conc. 32.1 g/dL (32.0-36.0); Mean Corpuscular Volume 84.1 fL (80.0-100.0); Monocytes # (auto) 0.1 10 ^3/uL (0-1.3); Monocytes % (auto) 1.8 % (0.0-12.0); Neutrophils # (auto) 3.6 10 ^3/uL (1.6-8.6); Neutrophils % (auto) 81.9 % (37.0-80.0); Platelet Count (auto) 143 10^3/uL (140-450); Red Blood Cells 4.17 10^6/uL (4.0-5.20); Red Cell Distribution Width 17.3 % (11.8-14.3); White Blood Cell 4.3 10^3/uL (4.4-10.8)
[2024-06-12 06:19] LABS: Chloride 103 mmol/L (98-107); Potassium 3.9 mmol/L (3.5-5.1); Sodium 139 mmol/L (136-145)
[2024-06-12 06:20] LABS: Anion Gap 10 (5-15); Carbon Dioxide 26 mmol/L (20-31)
[2024-06-12 06:21] LABS: Calcium 9.7 mg/dL (8.7-10.4)
[2024-06-12 06:25] LABS: BUN/Creatinine Ratio 15.3 (10.0-20.0); Blood Urea Nitrogen 15 mg/dL (9-23)
[2024-06-12 06:26] LABS: Glucose 135 mg/dL (74-106)
[2024-06-12] MEDS ORDERED: IOHEXOL 350 MG/ML 100ML IJ ONE (09:36)
[2024-06-12] MEDS: ENOXAPARIN SOD 40 MG/0.4 ML SYRINGE SC SCH (10:00)
[2024-06-12] MEDS: FUROSEMIDE 40 MG/4 ML VIAL IV SCH (10:13)
--- NOTE | 2024-06-12 12:21 | DVH ---
History: descending aortic dissection reported on echo Comparison: Chest X-ray of 06/10/2024 TECHNIQUE: Using a slice CT scanner volumetric data acquisition of chest, abdomen and pelvis was obta ined following intravenous administration of intravenous 100 ml contrast without any reported adverse effects. Axial images were reconstructed and additional sagittal and coronal images were reformatted . 3D/MIP images were performed and reviewed for reporting. Radiation dose Information: CT Dose: CTDI volume is 8.84 mGy. Dose-length product is 326.6 mGy*cm Findings: Chest: Pulmonary Arteries: There are no filling defects within main pulmonary arteries. There is normal dim ensional of main PA. Lungs: There is no peripheral pulmonary infarction, consolidation, pleural effusion, or right heart s train. There is no pneumothorax or pneumomediastinum. Aorta: There is a large aortic dissection well visualized on axial images 247 through 31. The dissect ion demonstrates contrast in both the true and false lumens distally. More proximally, beginning at t he level of the mid to distal thoracic aorta, the false lumen demonstrates mild inhomogeneous density although markedly less dense than that of the true lumen. There is no aortic dissection involving th e ascending aorta. The right subclavian artery demonstrates no dissection. The origins of the great v essels arising from the aorta demonstrate no dissection. The distal abdominal aorta is not visualized . The renal arteries are not visualized as this is a CT scan of the chest. IMPRESSION: 1. Descending thoracic aortic dissection without involvement of the ascending aorta and great vessels . The dissection extends into the abdominal aorta which is incompletely visualized. CT angiogram of t he abdominal aorta is recommended for further assessment. 2. Multiple attempts were made to reach the referring physician. 3. All CT scans at this medical facility are performed using dose modulation techniques as appropriat e to a performed exam including the following: Automated exposure control was utilized; Adjustment of the MA And/or KV according to patient size; And use of iterative reconstruction technique.
[2024-06-12] MEDS: LABETALOL HCL 20 MG/4 ML VL IV PRN (13:04)
[2024-06-12] MEDS: NIFEdipine ER 30 MG TAB PO SCH (13:56)
--- NOTE | 2024-06-12 14:48 | DVH ---
EXAM: CT Abdomen and Pelvis Without Intravenous Contrast CLINICAL INDICATION: ABDOMINAL AORTIC DISSECTION TECHNIQUE: Axial computed tomography images of the abdomen and pelvis without intravenous contrast. This CT exam was performed using one or more of the following dose reduction techniques: automated exposure control, adjustment of the mA and/or kV according to patient size, and/or use of iterative r econstruction technique. RADIATION DOSE: CTDlvol= CTDIvol mGy, DLP= 609.95 mGy-cm COMPARISON: None FINDINGS: LUNG BASES: Unremarkable. No mass. No consolidation. ABDOMEN: LIVER: Hepatomegaly. GALLBLADDER AND BILE DUCTS: Cholelithiasis. No ductal dilation. PANCREAS: Unremarkable. No ductal dilation. SPLEEN: Unremarkable. No splenomegaly. ADRENALS: Unremarkable. No mass. KIDNEYS AND URETERS: Unremarkable. No obstructing stones. No hydronephrosis. STOMACH AND BOWEL: Fecal retention in the colon consistent with constipation. Colonic diverticulosi s without acute diverticulitis. No obstruction. PELVIS: APPENDIX: No findings to suggest acute appendicitis. BLADDER: Unremarkable. No stones. REPRODUCTIVE: Unremarkable as visualized. ABDOMEN and PELVIS: INTRAPERITONEAL SPACE: Unremarkable. No free air. No significant fluid collection. BONES/JOINTS: No acute fracture. No dislocation. SOFT TISSUES: Unremarkable. VASCULATURE: Descending aortic aneurysm with indwelling stent. Contrast extravasation or dissection can not be evaluated. This is not a dedicated CT angiogram. Contrast is noted in the excretory phas e and in the urinary bladder. LYMPH NODES: Unremarkable. No enlarged lymph nodes. OTHER FINDINGS: . . IMPRESSION: 1. Descending aortic aneurysm with indwelling stent. Contrast extravasation or dissection can not be evaluated. This is not a dedicated CT angiogram. Contrast is noted in the excretory phase and in t he urinary bladder. 2. Hepatomegaly. 3. Cholelithiasis. 4. Fecal retention in the colon consistent with constipation. 5. Colonic diverticulosis without acute diverticulitis.
--- NOTE | 2024-06-12 15:29 | DVHDSRES ---
Discharge Summary Date of Admission Resident Creating Document: JUSTUS GAFFNEY RESIDENT Jun 10, 2024 at 22:15 Date of Discharge: Jun 12, 2024 Admitting Diagnosis Descending thoracic aortic dissection Labs/Diagnostic Data: Laboratory Results Test 06/12/24 05:38 06/11/24 05:44 06/10/24 11:49 06/10/24 11:21 White Blood Count 4.3 10^3/uL (4.4-10.8) Red Blood Count 4.17 10^6/uL (4.0-5.20) Hemoglobin 11.3 g/dL (12.2-16.2) Hematocrit 35.1 % (36.0-46.0) Mean Corpuscular Volume 84.1 fL (80.0-100.0) Mean Corpuscular Hemoglobin 27.0 pg (28.0-32.0) Mean Corpuscular Hemoglobin Concent 32.1 g/dL (32.0-36.0) Red Cell Distribution Width 17.3 % (11.8-14.3) Platelet Count 143 10^3/uL (140-450) Mean Platelet Volume 9.5 fL (6.9-10.8) Neutrophils (%) (Auto) 81.9 % (37.0-80.0) Lymphocytes (%) (Auto) 14.3 % (10.0-50.0) Monocytes (%) (Auto) 1.8 % (0.0-12.0) Eosinophils (%) (Auto) 1.3 % (0.0-7.0) Basophils (%) (Auto) 0.7 % (0.0-2.0) Neutrophils # (Auto) 3.6 10 ^3/uL (1.6-8.6) Lymphocytes # (Auto) 0.6 10 ^3/uL (0.4-5.4) Monocytes # (Auto) 0.1 10 ^3/uL (0-1.3) Eosinophils # (Auto) 0.1 10 ^3/uL (0-0.8) Basophils # (Auto) 0 10 ^3/uL (0-0.2) Nucleated Red Blood Cells 0.0 % Sodium Level 139 mmol/L (136-145) Potassium Level 3.9 mmol/L (3.5-5.1) Chloride Level 103 mmol/L (98-107) Carbon Dioxide Level 26 mmol/L (20-31) Anion Gap 10 (5-15) Blood Urea Nitrogen 15 mg/dL (9-23) Creatinine 0.98 mg/dL (0.550-1.02) Glomerular Filtration Rate Calc 66 mL/min (>90) BUN/Creatinine Ratio 15.3 (10.0-20.0) Serum Glucose 135 mg/dL (74-106) Calcium Level 9.7 mg/dL (8.7-10.4) Magnesium Level 2.1 mg/dL (1.6-2.6) Total Bilirubin 0.6 mg/dL (0.2-1.0) Aspartate Amino Transferase (AST) 15 U/L (13-40) Alanine Aminotransferase (ALT) < 9 U/L (7-40) Alkaline Phosphatase 72 U/L (46-116) B-Type Natriuretic Peptide 520.01 pg/mL (0-100) Total Protein 6.9 g/dL (5.7-8.2) Albumin 3.9 g/dL (3.2-4.8) Prothrombin Time 11.5 sec (9.3-11.8) Prothrombin Time INR 1.09 (0.9-1.15) Activated Partial Thromboplast Time 29.8 SEC (24.5-34.5) Phosphorus Level 4.1 mg/dL (2.4-5.1) Thyroid Stimulating Hormone (TSH) 2.02 uIU/mL (0.55-4.78) Urine Color Yellow (Yellow) Urine Clarity Clear (Clear) Urine pH 6.0 (5.0-9.0) Urine Specific [place] 1.027 (1.001-1.035) Urine Protein 1+ (Negative) Urine Ketones Trace (Negative) Urine Blood 1+ /uL (Negative) Urine Nitrite Negative (Negative) Urine Bilirubin Negative (Negative) Urine Urobilinogen 3 mg/dL (Negative) Urine Leukocyte Esterase Negative /uL (Negative) Urine RBC 22 /hpf (0 - 4) Urine Microscopic WBC 3 /HPF (0-5) Urine Squamous Epithelial Cells Few /hpf (<5) Urine Bacteria Few /hpf (None Seen) Urine Mucus Few (None Seen) Urine Glucose Normal mg/dL (Normal) Urine Opiates Screen Neg (NEGATIVE) Urine Fentanyl Screen Neg (NEGATIVE) Urine Barbiturates Screen Neg (NEGATIVE) Urine Phencyclidine Screen Neg (NEGATIVE) Urine Amphetamines Screen Neg (NEGATIVE) Urine Benzodiazepines Screen Neg (NEGATIVE) Urine Cocaine Screen Neg (NEGATIVE) Urine Cannabinoids Screen Neg (NEGATIVE) Other Laboratory Tests 06/12/24 05:38 Brief Hx & Hospital Course: This is a 59-year-old female with a history of hypertension, thoracic aortic dissection/aneurysm repair (2019), CVA with residual left-sided weakness, heart failure with reduced ejection fraction (EF 50%), severe mitral regurgitation and peripheral neuropathy, who presented with bilateral lower extremity swelling, dyspnea on exertion, and generalized weakness. Imaging revealed an extensive thoracic aortic dissection with flow into lumens not visualized on previous studies. Cardiac workup estimated EF at 50%, and CT angiography confirmed the findings. Strict blood pressure management was initiated with losartan, nifedipine, furosemide, labetalol and metoprolol. The patients condition requires transfer to a higher level of care for vascular surgery evaluation, as no vascular surgeon was available onsite. Goals of care were discussed with the patient and her family. Prednisone was administered due to iodine allergy before imaging. Physical Examination Constitutional: Patient was alert and oriented to time, place and person and does not appear to be in any acute distress. Gen - no pallor, no icterus, no cyanosis, no clubbing, no LAD, 1+ pitting edema the bilateral lower extremities more in the left. Skin - Patients skin is warm and dry.. HEENT - normocephalic, atraumatic, moist mucous membranes. Neck - full ROM, no LAD, no JVD Pulmonary - B/L vesicular breath sounds. no crackles , no wheezing cardiovascular - normal S1,S2 heard. no murmurs heard. Right dorsalis pedis 2+, left dorsalis pedis 1+ (left foot has more swelling), bilateral radial pulses us, no radio-radial or radio-femoral delay GI - soft abdomen without tenderness to palpation. no hepatospleenomegaly. B owel sounds normoactive Neurological - right upper and lower extremity strength 5/5, left upper and lower extremity strength 3/5, left wrist drop, no sensory deficit, no facial droop, no speech difficulty. Case discussed with Dr Zuñiga Time spent on care 23 min Operations or Procedures APPROVED REPORT EXAM: Two-dimensional and M-mode echocardiogram with Doppler and color Doppler. Blood Pressure: 144/78 mmHg INDICATION Heart Failure RISK FACTORS Height: 5'5", Weight: 136 DIMENSIONS LVDd 5.0 (3.8-5.7cm) LA (2D) 4.2 (1.9-4.0cm) Aortic Root 3.7 (2.0- 3.7cm) LVDs 3.9 (2.5-4.0cm) LA (MM) (1.9-4.0cm) Aortic Cusp Exc 1.6 (1.5- 2.0cm) EF (%) 50.0 (55-70%) Rt. Atrium 4.3 (1.9-4.0cm) Asc. Aorta 3.9 cm IVSd 0.7 (0.7-1.1cm) RV (D) (1.8-2.4cm) PWd 1.0 (0.7-1.1cm) Mitral Valve Mitral Mitral Stenosis E wave 0.70m/s MV Mean GR. mmHg A wave 0.96m/s MV Peak GR. mmHg E/A ratio 0.7 2D MVA cm2 DECEL Time 142ms PRESS 1/2 Time ms Aortic Valve Aortic Valve Aortic Stenosis V1 1.10m/s AO Mean GR. 4mmHg V2 1.33m/s AO Peak GR. 7mmHg LVOT Diameter 2.1 (1.8-2.4cm) Doppler KIM 2.86cm2 AI P 1/2 Time 483.89ms Pulmonic Valve V2 0.78m/s Tricuspid Valve TR Velocity 2.12m/s RVSP 26mmHg LEFT VENTRICLE The left ventricle is of normal size. Wall thickness is normal. Ejection fraction is low normal and is estimated at 50%. There is likely severe hypokinesis of the basal and mid posterior wall. There is grade II diastolic dysfunction. E to E prime ratio is in the normal range. RIGHT VENTRICLE The right ventricle is of normal size. Systolic function is normal. ATRIA The left atrium is moderately to severely dilated in size. Right atrium is moderately to severely dilated in size. MITRAL VALVE Leaflets appear to be of normal structure. There is rerpjkpu-lg-zbdrkp mitral regurgitation with an eccentric jet that is laterally and posteriorly directed. This is not adequately assessed during the study today and could be under estimated. PULMONIC VALVE Likely normal. TRICUSPID VALVE Normal structure and function. There is mild tricuspid regurgitation. PA systolic pressure is estimated at 25-30 mm Hg. AORTIC VALVE Normal in structure. There is nfvs-gc-nznyjtuy central regurgitation. No significant stenosis. GREAT VESSELS The aortic root measures 3.7 cm at the level of the sinuses of Valsalva. Proximal ascending aorta measured 3.9 cm. 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 PERICARDIAL EFFUSION There is trace pericardial effusion. IVC is dilated in size and does not collapse normally with inspiration. 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 Normal left ventricular size with low-normal systolic function. Ejection fraction is estimated at 50%. There is likely hypokinesis of the basal and mid posterior wall. Normal right ventricular size and systolic function. Sutlwmcb-ys-hobbfe biatrial enlargement. Rzmmotmj-re-nxknvk mitral regurgitation. The jet is eccentric and could be under estimated. Dfsu-tn-eoxxvwon aortic insufficiency. The aortic root is of normal size. The dissection in the descending aorta was not visualized on an echo done in November of 2023; otherwise, there does not appear to be significant change compared to the prior echo. I did speak to the nurse from the emergency room regarding this patient. Discussion included the fact that the renal arteries are not visualized on this study. I strongly recommended that a vascular surgeon be consulted immediately. Note is made that findings may be related to an endoleak. Angiography should be strongly considered after consultation with vascular surgeon. For evaluation of the renal arteries, a CT noncontrast study can be attempted. If this is of no help, further assessment could be performed with MR angiography if clinically indicated. Please note that my personal cell phone number was given by me to the nurse. ADDENDUM # 1 History: descending aortic dissection reported on echo Comparison: Chest X-ray of 06/10/2024 TECHNIQUE: Using a slice CT scanner volumetric data acquisition of chest, abdomen and pelvis was obtained following intravenous administration of intravenous 100 ml contrast without any reported adverse effects. Axial images were reconstructed and additional sagittal and coronal images were reformatted. 3D/MIP images were performed and reviewed for reporting. Radiation dose Information: CT Dose: CTDI volume is 8.84 mGy. Dose-length product is 326.6 mGy*cm Findings: Chest: Pulmonary Arteries: There are no filling defects within main pulmonary arteries. There is normal dimensional of main PA. Lungs: There is no peripheral pulmonary infarction, consolidation, pleural effusion, or right heart strain. There is no pneumothorax or pneumomediastinum. Aorta: There is a large aortic dissection well visualized on axial images 247 through 31. The dissection demonstrates contrast in both the true and false lumens distally. More proximally, beginning at the level of the mid to distal thoracic aorta, the false lumen demonstrates mild inhomogeneous density although markedly less dense than that of the true lumen. There is no aortic dissection involving the ascending aorta. The right subclavian artery demonstrates no dissection. The origins of the great vessels arising from the aorta demonstrate no dissection. The distal abdominal aorta is not visualized. The renal arteries are not visualized as this is a CT scan of the chest. IMPRESSION: 1. Descending thoracic aortic dissection without involvement of the ascending aorta and great vessels. The dissection extends into the abdominal aorta which is incompletely visualized. CT angiogram of the abdominal aorta is recommended for further assessment. 2. Multiple attempts were made to reach the referring physician. 3. All CT scans at this medical facility are performed using dose modulation techniques as appropriate to a performed exam including the following: Automated exposure control was utilized; Adjustment of the MA And/or KV according to patient size; And use of iterative reconstruction technique. ORIGINAL REPORT History: descending aortic dissection reported on echo Comparison: Chest X-ray of 06/10/2024 TECHNIQUE: Using a slice CT scanner volumetric data acquisition of chest, abdomen and pelvis was obtained following intravenous administration of intravenous 100 ml contrast without any reported adverse effects. Axial images were reconstructed and additional sagittal and coronal images were reformatted. 3D/MIP images were performed and reviewed for reporting. Radiation dose Information: CT Dose: CTDI volume is 8.84 mGy. Dose-length product is 326.6 mGy*cm Findings: Chest: Pulmonary Arteries: There are no filling defects within main pulmonary arteries. There is normal dimensional of main PA. Lungs: There is no peripheral pulmonary infarction, consolidation, pleural effusion, or right heart strain. There is no pneumothorax or pneumomediastinum. Aorta: There is a large aortic dissection well visualized on axial images 247 through 31. The dissection demonstrates contrast in both the true and false lumens distally. More proximally, beginning at the level of the mid to distal thoracic aorta, the false lumen demonstrates mild inhomogeneous density although markedly less dense than that of the true lumen. There is no aortic dissection involving the ascending aorta. The right subclavian artery demonstrates no dissection. The origins of the great vessels arising from the aorta demonstrate no dissection. The distal abdominal aorta is not visualized. The renal arteries are not visualized as this is a CT scan of the chest. IMPRESSION: 1. Descending thoracic aortic dissection without involvement of the ascending aorta and great vessels. The dissection extends into the abdominal aorta which is incompletely visualized. CT angiogram of the abdominal aorta is recommended for further assessment. 2. Multiple attempts were made to reach the referring physician. 3. All CT scans at this medical facility are performed using dose modulation techniques as appropriate to a performed exam including the following: Automated exposure control was utilized; Adjustment of the MA And/or KV according to patient size; And use of iterative reconstruction technique. EXAM: CT Abdomen and Pelvis Without Intravenous Contrast CLINICAL INDICATION: ABDOMINAL AORTIC DISSECTION TECHNIQUE: Axial computed tomography images of the abdomen and pelvis without intravenous contrast. This CT exam was performed using one or more of the following dose reduction techniques: automated exposure control, adjustment of the mA and/or kV according to patient size, and/or use of iterative reconstruction technique. RADIATION DOSE: CTDlvol= CTDIvol mGy, DLP= 609.95 mGy-cm COMPARISON: None FINDINGS: LUNG BASES: Unremarkable. No mass. No consolidation. ABDOMEN: LIVER: Hepatomegaly. GALLBLADDER AND BILE DUCTS: Cholelithiasis. No ductal dilation. PANCREAS: Unremarkable. No ductal dilation. SPLEEN: Unremarkable. No splenomegaly. ADRENALS: Unremarkable. No mass. KIDNEYS AND URETERS: Unremarkable. No obstructing stones. No hydronephrosis. STOMACH AND BOWEL: Fecal retention in the colon consistent with constipation. Colonic diverticulosis without acute diverticulitis. No obstruction. PELVIS: APPENDIX: No findings to suggest acute appendicitis. BLADDER: Unremarkable. No stones. REPRODUCTIVE: Unremarkable as visualized. ABDOMEN and PELVIS: INTRAPERITONEAL SPACE: Unremarkable. No free air. No significant fluid collection. BONES/JOINTS: No acute fracture. No dislocation. SOFT TISSUES: Unremarkable. VASCULATURE: Descending aortic aneurysm with indwelling stent. Contrast extravasation or dissection can not be evaluated. This is not a dedicated CT angiogram. Contrast is noted in the excretory phase and in the urinary bladder. LYMPH NODES: Unremarkable. No enlarged lymph nodes. OTHER FINDINGS: . . IMPRESSION: 1. Descending aortic aneurysm with indwelling stent. Contrast extravasation or dissection can not be evaluated. This is not a dedicated CT angiogram. Contrast is noted in the excretory phase and in the urinary bladder. 2. Hepatomegaly. 3. Cholelithiasis. 4. Fecal retention in the colon consistent with constipation. 5. Colonic diverticulosis without acute diverticulitis. Condition at Discharge: Higher Level of Care Final Diagnosis/Problems List Descending thoracic aortic dissection without involvement of the ascending aorta and great vessels Acute on chronic heart failure with reduced ejection fraction (patient has severe mitral regurgitation) Hypertensive emergency resolved H/o thoracic aortic aneurysm/dissection repair H/o CVA Jzgqloep-ji-brwtvv biatrial enlargement. Ebofuces-gf-hlwyvr mitral regurgitation Discharge Disposition: Acute Care Facility Discharge Instruct/Medications Diet: Cardiac 2g Na,low cholest Activity: Bed rest Follow Up/Referral: patient will need vascular surgery assesment Medications: according to facility Discharge Statement: "Patient was advised to return to the ER or call 911 if any headaches, dizziness, shortness of breath, chest pain, abdominal pain, bleeding, fevers, or worsening of medical condition. Patient was counseled about treatment plan, medications, possible side effects, patientverbalized understanding. All questions were answered to the best of my ability. This discharge took greater then 30 minutes in planning, reviewing documentation, counseling the patient, and discussing with other team members." ASSESSMENT ASSESSMENT Assessment descending thoracic aortic disection Date of Service: Jun 12, 2024 Billing Provider: JOSSUE ZUÑIGA MD Common Visit Codes: 30572-UOT/OBS DISCH DAY >30min JUSTUS GAFFNEY RESIDENT Jun 12, 2024 15:29 JOSSUE ZUÑIGA MD Jun 12, 2024 21:57
[2024-06-12] MEDS: METOPROLOL TARTRATE 50 MG TAB PO SCH (21:45)
--- NOTE | 2024-06-12 22:35 | DVHPN2 ---
Objective Vitals Vital Signs Date Time Temp Pulse Resp B/P (MAP) Pulse Ox O2 Delivery O2 Flow Rate FiO2 06/12/24 21:45 98 111/59 06/12/24 21:00 98.0 17 100 98.0 06/12/24 08:10 Room Air* 0 21 Intake/Output Intake and Output 06/12/24 07:00 Intake Total 1210 ml Output Total 2 ml Balance 1208 ml Intake Oral 1210 ml Output Stool Total 2 ml # Voids 13 Medications Current Medications Medications Dose Ordered Sig/Darlene Route Start Time Stop Time Status Last Admin Dose Admin Aspirin 81 mg DAILY PO 06/11/24 10:00 06/12/24 10:12 81 MG Nitroglycerin 0.4 mg Q5MINP PRN SL 06/10/24 22:15 Enoxaparin Sodium 40 mg DAILY SC 06/12/24 10:00 Atorvastatin Calcium 40 mg HS PO 06/11/24 22:00 06/12/24 21:45 40 MG Famotidine 20 mg Q12HR PO 06/11/24 22:00 06/12/24 21:45 20 MG Furosemide 40 mg DAILY IV 06/12/24 10:00 06/12/24 10:13 40 MG Labetalol HCl 10 mg Q2HPRN PRN IV 06/11/24 18:30 06/12/24 18:24 10 MG Metoprolol Tartrate 50 mg BID PO 06/12/24 22:00 06/12/24 21:45 50 MG Nifedipine 60 mg DAILY PO 06/12/24 13:00 06/12/24 13:56 60 MG Losartan Potassium 100 mg DAILY PO 06/13/24 10:00 Laboratory Results Laboratory Tests 06/12/24 05:38 Chemistry Test 06/12/24 05:38 Calcium Level 9.7 mg/dL (8.7-10.4) Urinalysis Test 06/10/24 11:21 Urine Color Yellow (Yellow) Urine Clarity Clear (Clear) Urine pH 6.0 (5.0-9.0) Urine Specific [place] 1.027 (1.001-1.035) Urine Protein 1+ (Negative) H Urine Ketones Trace (Negative) Urine Blood 1+ /uL (Negative) H Urine Nitrite Negative (Negative) Urine Bilirubin Negative (Negative) Urine Urobilinogen 3 mg/dL (Negative) H Urine Leukocyte Esterase Negative /uL (Negative) Urine RBC 22 /hpf (0 - 4) Urine Microscopic WBC 3 /HPF (0-5) Urine Squamous Epithelial Cells Few /hpf (<5) Urine Bacteria Few /hpf (None Seen) H Urine Mucus Few (None Seen) Urine Glucose Normal mg/dL (Normal) JOSSUE NOLASCO MD Jun 12, 2024 22:35
[2024-06-13] VITALS (15 sets, daily range): BP systolic 103–121; BP diastolic 37–86; PULSE 54–68; RESP 16–20; TEMP 97.7–98.2; O2SAT 92–100
[2024-06-13 07:23] LABS: Basophils # (auto) 0 10 ^3/uL (0-0.2); Basophils % (auto) 0.5 % (0.0-2.0); Eosinophils # (auto) 0 10 ^3/uL (0-0.8); Hematocrit 33.6 % (36.0-46.0); Hemoglobin 10.9 g/dL (12.2-16.2); Lymphocytes # (auto) 0.7 10 ^3/uL (0.4-5.4); Lymphocytes % (auto) 13.1 % (10.0-50.0); Mean Corpuscular Hemoglobin 26.9 pg (28.0-32.0); Mean Corpuscular Hgb Conc. 32.3 g/dL (32.0-36.0); Mean Corpuscular Volume 83.3 fL (80.0-100.0); Monocytes # (auto) 0.2 10 ^3/uL (0-1.3); Monocytes % (auto) 2.7 % (0.0-12.0); Neutrophils # (auto) 4.8 10 ^3/uL (1.6-8.6); Neutrophils % (auto) 83.7 % (37.0-80.0); Platelet Count (auto) 138 10^3/uL (140-450); Red Blood Cells 4.03 10^6/uL (4.0-5.20); Red Cell Distribution Width 17.4 % (11.8-14.3); White Blood Cell 5.7 10^3/uL (4.4-10.8)
[2024-06-13 07:38] LABS: Alanine Aminotransferase < 9 U/L (7-40); Albumin 4.1 g/dL (3.2-4.8); Alkaline Phosphatase 70 U/L (46-116); Anion Gap 10 (5-15); Aspartate Aminotransferase 10 U/L (13-40); BUN/Creatinine Ratio 23.2 (10.0-20.0); Bilirubin, Total 0.6 mg/dL (0.2-1.0); Blood Urea Nitrogen 22 mg/dL (9-23); Calcium 9.7 mg/dL (8.7-10.4); Carbon Dioxide 26 mmol/L (20-31); Chloride 102 mmol/L (98-107); Glucose 93 mg/dL (74-106); Potassium 3.4 mmol/L (3.5-5.1); Sodium 138 mmol/L (136-145)
[2024-06-13] MEDS: POTASSIUM CHL 20 Meq TABLET PO ONE (09:28)
[2024-06-13] MEDS ORDERED: NIFEdipine ER 30 MG TAB PO SCH (10:00)
[2024-06-13] MEDS: POTASSIUM CHL 20 Meq TABLET PO SCH (10:36)
[2024-06-13] MEDS: LOSARTAN POTASSIUM 50 MG TAB PO SCH (10:38)
[2024-06-13] MEDS ORDERED: MIDAZOLAM HCL 2MG/2ML 2ml VIAL (1mg/ml) ONE (13:06)
[2024-06-13] MEDS ORDERED: fentaNYL CITRATE 100 MCG/2 ML VL ONE (13:06)
[2024-06-13] MEDS ORDERED: HYDROmorphone HCL 2 MG/ML VL/or syr ONE (13:06)
[2024-06-13] MEDS ORDERED: PROPOFOL 10 MG/ML 20 ML IV ONE (13:07)
[2024-06-13] MEDS ORDERED: LIDOCAINE 2% (LOCAL ANESTH.) PF 5ml SDV ONE (13:07)
[2024-06-13] MEDS ORDERED: GLYCOPYRROLATE 0.2 MG/ML 1ML VIAL ONE (13:07)
[2024-06-13] MEDS ORDERED: DexAMETHasone SOD PHOS 10MG/1ML VIAL INJ ONE (13:07)
[2024-06-13] MEDS ORDERED: ONDANSETRON HCL 4 MG/2 ML VIAL ONE (13:07)
[2024-06-13] MEDS ORDERED: KETOROLAC TROMETH 30 MG/ML 1ML VIAL ONE (13:07)
--- NOTE | 2024-06-13 15:33 | DVHPNRES ---
Progress Note Date Seen: Jun 13, 2024 Resident Creating Document: JHAJJBRENDAN RESIDENT Medical Necessity Reason Pt with a Central, PICC or Fol: No Subjective Review of Systems Review of systems Patient seen and examined at the bedside Patient is in no acute distress Blood pressure maintained with a goal SBP less than 130 mmHg Patient denied chest pain, shortness of breath, palpitations at present. Reports tolerating food well Objective vital signs Vital Sign Date Time Temp Pulse Resp B/P (MAP) Pulse Ox O2 Delivery O2 Flow Rate FiO2 06/13/24 14:24 63 16 107/63 (78) 06/13/24 13:00 97.9 100 97.9 06/13/24 08:10 Room Air* 0 21 Total Intake and Output 06/12/24 06/12/24 06/13/24 15:00 23:00 07:00 Intake Total 450 ml Balance 450 ml medications Current Medications Medications Dose Ordered Sig/Darlene Route Start Time Stop Time Status Last Admin Dose Admin Aspirin 81 mg DAILY PO 06/11/24 10:00 06/13/24 09:31 81 MG Nitroglycerin 0.4 mg Q5MINP PRN SL 06/10/24 22:15 Enoxaparin Sodium 40 mg DAILY SC 06/12/24 10:00 06/13/24 09:33 40 MG Atorvastatin Calcium 40 mg HS PO 06/11/24 22:00 06/12/24 21:45 40 MG Famotidine 20 mg Q12HR PO 06/11/24 22:00 06/13/24 09:31 20 MG Furosemide 40 mg DAILY IV 06/12/24 10:00 06/13/24 09:33 40 MG Labetalol HCl 10 mg Q2HPRN PRN IV 06/11/24 18:30 06/12/24 18:24 10 MG Metoprolol Tartrate 50 mg BID PO 06/12/24 22:00 06/13/24 10:39 50 MG Nifedipine 60 mg DAILY PO 06/12/24 13:00 06/13/24 09:31 60 MG Losartan Potassium 100 mg DAILY PO 06/13/24 10:00 06/13/24 10:38 100 MG Potassium Chloride 20 meq DAILY PO 06/13/24 10:00 06/13/24 10:36 20 MEQ Examination Constitutional: Patient was alert and oriented to time, place and person and does not appear to be in any acute distress. Gen - no pallor, no icterus, no cyanosis, no clubbing, no LAD, 1+ pitting edema the bilateral lower extremities more in the left. Skin - Patients skin is warm and dry.. HEENT - normocephalic, atraumatic, moist mucous membranes. Neck - full ROM, no LAD, no JVD Pulmonary - B/L vesicular breath sounds. no crackles , no wheezing cardiovascular - normal S1,S2 heard. no murmurs heard. Right dorsalis pedis 2+, left dorsalis pedis 1+ (left foot has more swelling), bilateral radial pulses us, no radio-radial or radio-femoral delay GI - soft abdomen without tenderness to palpation. no hepatospleenomegaly. B owel sounds normoactive Neurological - right upper and lower extremity strength 5/5, left upper and lower extremity strength 3/5, left wrist drop, no sensory deficit, no facial droop, no speech difficulty. laboratory and microbiology Laboratory Tests 06/13/24 05:39 Test 06/13/24 05:39 Range/Units Serum Glucose 93 74-106 mg/dL Problem List/Assessment/Plan Problem List/Assessment/Plan Acute on chronic heart failure with preserved ejection fraction Hypertensive emergency H/o thoracic aortic aneurysm/dissection repair Descending aortic dissection, new versus chronic - chest x-ray showed cardiomegaly with no consolidation or interstitial edema. - left lower extremity ultrasound shows no DVT - on furosemide 40 mg IV daily - metoprolol tartrate 50 mg b.i.d. - losartan 100 mg daily - echocardiogram showed There is extensive dissection throughout the visualized descending aorta with flow into lumens, which was not seen on the previous echo in November of 2023. Ejection fraction is estimated at 50%. - CT angio chest showed Descending thoracic aortic dissection without involvement of the ascending aorta and great vessels. The dissection extends into the abdominal aorta which is incompletely visualized. - CT abdomen pelvis without IV contrast showed Descending aortic aneurysm with indwelling stent. Contrast extravasation or dissection can not be evaluated - strict blood pressure control to be maintained. H/o CVA - residual left-sided weakness - on aspirin and atorvastatin Normocytic hypochromic anemia - chronic - continue to monitor H&H Patient is pending transfer to [facility] for vascular surgery. strict blood pressure control to be maintained. DVT prophylaxis: Enoxaparin 40 mg sc daily PUD prophylaxis: Famotidine 20 mg q.12 hours Goals of care discussed with the patient and the daughter for over 21 minutes. Full code Plan discussed with Dr. Zuñiga Plan discussed with: Patient My Orders My Orders Orders - BRENDAN PERDOMO Procedure Category Date Status Time Potassium Er Tablet PHA 06/13/24 In Process (Klor-Con Tablet) 10:00 Fentanyl Citrate PHA 06/13/24 In Process Injection 13:06 Date of Service: Jun 13, 2024 Billing Provider: JOSSUE ZUÑIGA MD Common Visit Codes: [id number] INP/OBS CARE(HIGH) BRENDAN PERDOMO Jun 13, 2024 15:33 JOSSUE ZUÑIGA MD Jun 14, 2024 07:14
[2024-06-14 01:00] VITALS: BP 106/52; PULSE 58; RESP 20; TEMP 98.4; O2SAT 100
[2024-06-14 05:00] VITALS: BP 99/48; PULSE 60; RESP 20; TEMP 98; O2SAT 98
[2024-06-14 06:50] LABS: Anion Gap 7 (5-15); Carbon Dioxide 27 mmol/L (20-31); Chloride 106 mmol/L (98-107); Potassium 4.3 mmol/L (3.5-5.1); Sodium 140 mmol/L (136-145)
[2024-06-14 06:51] LABS: Calcium 9.3 mg/dL (8.7-10.4)
[2024-06-14 06:56] LABS: Glucose 83 mg/dL (74-106)
[2024-06-14 06:57] LABS: BUN/Creatinine Ratio 20.4 (10.0-20.0); Blood Urea Nitrogen 21 mg/dL (9-23)
[2024-06-14 06:59] LABS: Basophils # (auto) 0 10 ^3/uL (0-0.2); Eosinophils # (auto) 0.2 10 ^3/uL (0-0.8); Hemoglobin 10.3 g/dL (12.2-16.2); Lymphocytes # (auto) 0.5 10 ^3/uL (0.4-5.4); Monocytes # (auto) 0.2 10 ^3/uL (0-1.3)
[2024-06-14 07:01] LABS: Basophils % (auto) 0.4 % (0.0-2.0); Eosinophils % (auto) 2.6 % (0.0-7.0); Hematocrit 32.1 % (36.0-46.0); Lymphocytes % (auto) 8.4 % (10.0-50.0); Mean Corpuscular Hemoglobin 26.9 pg (28.0-32.0); Mean Corpuscular Hgb Conc. 32.1 g/dL (32.0-36.0); Mean Corpuscular Volume 83.9 fL (80.0-100.0); Monocytes % (auto) 3.3 % (0.0-12.0); Neutrophils # (auto) 4.9 10 ^3/uL (1.6-8.6); Neutrophils % (auto) 85.3 % (37.0-80.0); Nucleated Red Blood Cells % 0.2 %; Platelet Count (auto) 143 10^3/uL (140-450); Red Blood Cells 3.83 10^6/uL (4.0-5.20); Red Cell Distribution Width 17.7 % (11.8-14.3); White Blood Cell 5.8 10^3/uL (4.4-10.8)
[2024-06-14 08:00] VITALS: PULSE 60; PULSE 61; RESP 18; O2SAT 98
[2024-06-14 08:42] VITALS: BP 118/57; PULSE 60; RESP 18; TEMP 98.2; O2SAT 98
--- NOTE | 2024-06-14 11:00 | DVHCONRES ---
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%), anemia, polyneuropathy Past Surgical History Thoracic aortic aneurysm repair Family History: FH: cancer G8 MOTHER FH: prostate cancer G8 FATHER Social History Nonsmoker nondrinker Allergies: Coded Allergies: Diphenhydramine (Verified Allergy, Unknown, 01/06/24) Iodine (Verified Allergy, Unknown, 01/06/24) Penicillins (Verified Allergy, Unknown, 01/06/24) Home Meds Active Scripts Aspirin (Aspir-81) 81 Mg Tab, 1 TAB PO DAILY, #30 TAB 5 Refills Prov:[facility] 07/12/22 Furosemide (Lasix) 20 Mg Tb, 1 TAB PO DAILY, #60 TAB 1 Refill Prov:[facility] 07/12/22 Reported Medications Losartan Potassium (Losartan Potassium) 50 Mg Tab, 1 TAB PO DAILY, #30 TAB 5 Refills 07/12/22 Metoprolol Tartrate (Metoprolol Tartrate) 25 Mg Tab, 25 MG PO BID for 30 Days, MG 07/12/22 Review of Systems General: Reports generalized weakness HEENT: No headaches, visiual changes, hearing loss, tinnitus, nasal congestion and discharge, and sore throat. Cardiovascular: Denies chest pain, palpitations, dyspnea on exertion, orthopnea, or claudication. Respiratory: Reports shortness of breaths Gastrointestinal: Denies nausea, vomiting, dysphagia, odynophagia, heartburn, abdominal pain, flatulence, bloating, diarrhea, constipation, change in stool, or blood in stool. Genitourinary: No dysuria, hematuria, discharge, frequency, urgency, nocturia, incontinence, and urinary retention. Endocrine: No heat or cold intolerance, polydipsia, polyuria, and polyphagia. Neurological: No dizziness, extremity weakness and numbness, tremors, gait disturbance, seizures, and memory impairment. Psychiatric: Denies depression, anxiety,or insomnia. Musculoskeletal: Reports bilateral lower limb swelling and heaviness Skin: No rashes, itching, skin lesion, changes in hair, nail, skin texture and breast. Hematologic/Lymphatic: Denies easy bruising, bleeding tendencies, or lymph node enlargement. Vital Signs Vital Signs Date Time Temp Pulse Resp B/P (MAP) Pulse Ox O2 Delivery O2 Flow Rate FiO2 06/14/24 10:30 118/57 06/14/24 10:28 60 06/14/24 08:42 98.2 18 98 98.2 06/13/24 20:00 Room Air* 0 21 Physical Exam Head eyes ears nose and throat exam eyes are nonicteric conjunctiva is pink neck was supple no JVD no lymphadenopathy no carotid bruits lungs are clear to auscultation heart was regular rate and rhythm abdomen is soft and nontender with no pulsatile abdominal masses or bruits lower extremities palpable femoral and pedal pulses bilaterally trace edema. Labs/Diagnostic Data Labs Test 06/14/24 06:20 06/13/24 05:39 06/11/24 05:44 06/10/24 11:49 Range/Units White Blood Count 5.8 4.4-10.8 10^3/uL Red Blood Count 3.83 L 4.0-5.20 10^6/uL Hemoglobin 10.3 L 12.2-16.2 g/dL Hematocrit 32.1 L 36.0-46.0 % Mean Corpuscular Volume 83.9 80.0-100.0 fL Mean Corpuscular Hemoglobin 26.9 L 28.0-32.0 pg Mean Corpuscular Hemoglobin Concent 32.1 32.0-36.0 g/dL Red Cell Distribution Width 17.7 H 11.8-14.3 % Platelet Count 143 140-450 10^3/uL Mean Platelet Volume 9.7 6.9-10.8 fL Neutrophils (%) (Auto) 85.3 H 37.0-80.0 % Lymphocytes (%) (Auto) 8.4 L 10.0-50.0 % Monocytes (%) (Auto) 3.3 0.0-12.0 % Eosinophils (%) (Auto) 2.6 0.0-7.0 % Basophils (%) (Auto) 0.4 0.0-2.0 % Neutrophils # (Auto) 4.9 1.6-8.6 10 ^3/uL Lymphocytes # (Auto) 0.5 0.4-5.4 10 ^3/uL Monocytes # (Auto) 0.2 0-1.3 10 ^3/uL Eosinophils # (Auto) 0.2 0-0.8 10 ^3/uL Basophils # (Auto) 0 0-0.2 10 ^3/uL Nucleated Red Blood Cells 0.2 % Sodium Level 140 136-145 mmol/L Potassium Level 4.3 3.5-5.1 mmol/L Chloride Level 106 98-107 mmol/L Carbon Dioxide Level 27 20-31 mmol/L Anion Gap 7 5-15 Blood Urea Nitrogen 21 9-23 mg/dL Creatinine 1.03 H 0.550-1.02 mg/dL Glomerular Filtration Rate Calc 62 >90 mL/min BUN/Creatinine Ratio 20.4 H 10.0-20.0 Serum Glucose 83 74-106 mg/dL Calcium Level 9.3 8.7-10.4 mg/dL Total Bilirubin 0.6 0.2-1.0 mg/dL Aspartate Amino Transferase (AST) 10 L 13-40 U/L Alanine Aminotransferase (ALT) < 9 7-40 U/L Alkaline Phosphatase 70 46-116 U/L Total Protein 7.0 5.7-8.2 g/dL Albumin 4.1 3.2-4.8 g/dL Magnesium Level 2.1 1.6-2.6 mg/dL B-Type Natriuretic Peptide 520.01 0-100 pg/mL Prothrombin Time 11.5 9.3-11.8 sec Prothrombin Time INR 1.09 0.9-1.15 Activated Partial Thromboplast Time 29.8 24.5-34.5 SEC Phosphorus Level 4.1 2.4-5.1 mg/dL Thyroid Stimulating Hormone (TSH) 2.02 0.55-4.78 uIU/mL Test 06/10/24 11:21 Range/Units Urine Color Yellow Yellow Urine Clarity Clear Clear Urine pH 6.0 5.0-9.0 Urine Specific [place] 1.027 1.001-1.035 Urine Protein 1+ H Negative Urine Ketones Trace Negative Urine Blood 1+ H Negative /uL Urine Nitrite Negative Negative Urine Bilirubin Negative Negative Urine Urobilinogen 3 H Negative mg/dL Urine Leukocyte Esterase Negative Negative /uL Urine RBC 22 0 - 4 /hpf Urine Microscopic WBC 3 0-5 /HPF Urine Squamous Epithelial Cells Few <5 /hpf Urine Bacteria Few H None Seen /hpf Urine Mucus Few None Seen Urine Glucose Normal Normal mg/dL Urine Opiates Screen Neg NEGATIVE Urine Fentanyl Screen Neg NEGATIVE Urine Barbiturates Screen Neg NEGATIVE Urine Phencyclidine Screen Neg NEGATIVE Urine Amphetamines Screen Neg NEGATIVE Urine Benzodiazepines Screen Neg NEGATIVE Urine Cocaine Screen Neg NEGATIVE Urine Cannabinoids Screen Neg NEGATIVE LEFT LOWER EXTREMITY VENOUS DOPPLER CLINICAL HISTORY: dvt TECHNIQUE: Lower extremity venous Doppler study was performed. COMPARISON: US LT UPPER DVT on DOS: 07/11/22 FINDINGS: The left common femoral, superficial femoral, popliteal, posterior tibial veins and trifurcation appear patent with normal augmentation, phasicity, compressibility and color-flow. . IMPRESSION: 1. No sonographic evidence of DVT in the left leg. EXAM: CT Abdomen and Pelvis Without Intravenous Contrast CLINICAL INDICATION: ABDOMINAL AORTIC DISSECTION TECHNIQUE: Axial computed tomography images of the abdomen and pelvis without intravenous contrast. This CT exam was performed using one or more of the following dose reduction techniques: automated exposure control, adjustment of the mA and/or kV according to patient size, and/or use of iterative reconstruction technique. RADIATION DOSE: CTDlvol= CTDIvol mGy, DLP= 609.95 mGy-cm COMPARISON: None FINDINGS: LUNG BASES: Unremarkable. No mass. No consolidation. ABDOMEN: LIVER: Hepatomegaly. GALLBLADDER AND BILE DUCTS: Cholelithiasis. No ductal dilation. PANCREAS: Unremarkable. No ductal dilation. SPLEEN: Unremarkable. No splenomegaly. ADRENALS: Unremarkable. No mass. KIDNEYS AND URETERS: Unremarkable. No obstructing stones. No hydronephrosis. STOMACH AND BOWEL: Fecal retention in the colon consistent with constipation. Colonic diverticulosis without acute diverticulitis. No obstruction. PELVIS: APPENDIX: No findings to suggest acute appendicitis. BLADDER: Unremarkable. No stones. REPRODUCTIVE: Unremarkable as visualized. ABDOMEN and PELVIS: INTRAPERITONEAL SPACE: Unremarkable. No free air. No significant fluid collection. BONES/JOINTS: No acute fracture. No dislocation. SOFT TISSUES: Unremarkable. VASCULATURE: Descending aortic aneurysm with indwelling stent. Contrast extravasation or dissection can not be evaluated. This is not a dedicated CT angiogram. Contrast is noted in the excretory phase and in the urinary bladder. LYMPH NODES: Unremarkable. No enlarged lymph nodes. OTHER FINDINGS: . . IMPRESSION: 1. Descending aortic aneurysm with indwelling stent. Contrast extravasation or dissection can not be evaluated. This is not a dedicated CT angiogram. Contrast is noted in the excretory phase and in the urinary bladder. 2. Hepatomegaly. 3. Cholelithiasis. 4. Fecal retention in the colon consistent with constipation. 5. Colonic diverticulosis without acute diverticulitis. History: descending aortic dissection reported on echo Comparison: Chest X-ray of 06/10/2024 TECHNIQUE: Using a slice CT scanner volumetric data acquisition of chest, abdomen and pelvis was obtained following intravenous administration of intravenous 100 ml contrast without any reported adverse effects. Axial images were reconstructed and additional sagittal and coronal images were reformatted. 3D/MIP images were performed and reviewed for reporting. Radiation dose Information: CT Dose: CTDI volume is 8.84 mGy. Dose-length product is 326.6 mGy*cm Findings: Chest: Pulmonary Arteries: There are no filling defects within main pulmonary arteries. There is normal dimensional of main PA. Lungs: There is no peripheral pulmonary infarction, consolidation, pleural effusion, or right heart strain. There is no pneumothorax or pneumomediastinum. Aorta: There is a large aortic dissection well visualized on axial images 247 through 31. The dissection demonstrates contrast in both the true and false lumens distally. More proximally, beginning at the level of the mid to distal thoracic aorta, the false lumen demonstrates mild inhomogeneous density although markedly less dense than that of the true lumen. There is no aortic dissection involving the ascending aorta. The right subclavian artery demonstrates no disse ction. The origins of the great vessels arising from the aorta demonstrate no dissection. The distal abdominal aorta is not visualized. The renal arteries are not visualized as this is a CT scan of the chest. IMPRESSION: 1. Descending thoracic aortic dissection without involvement of the ascending aorta and great vessels. The dissection extends into the abdominal aorta which is incompletely visualized. CT angiogram of the abdominal aorta is recommended for further assessment. 2. Multiple attempts were made to reach the referring physician. 3. All CT scans at this medical facility are performed using dose modulation techniques as appropriate to a performed exam including the following: Automated exposure control was utilized; Adjustment of the MA And/or KV according to patient size; And use of iterative reconstruction technique. Assessment Status post thoracic stent graft placement for aortic dissection 2019 Patient without symptoms currently. CT demonstrates repair endovascular. At this time recommend strict blood pressure control. Would recommend follow up with primary vascular surgeon once discharged. Plan/Recommendation Status post thoracic stent graft placement for aortic dissection 2019 Patient without symptoms currently. CT demonstrates repair endovascular. At this time recommend strict blood pressure control. Would recommend follow up with primary vascular surgeon once discharged. Plan discussed with: Patient KARLIE EDDY Jr., MD Jun 14, 2024 11:00
[2024-06-14 12:55] VITALS: BP 109/51; PULSE 58; RESP 18; TEMP 98.5; O2SAT 99
[2024-06-14] MEDS ORDERED: METO-158 PO (15:10)
[2024-06-14] MEDS ORDERED: LOSA-534 PO (15:10)
[2024-06-14] MEDS ORDERED: ASPI1TAB20 PO (15:10)
[2024-06-14] MEDS ORDERED: FURO40TA4 PO (15:10)
[2024-06-14] MEDS ORDERED: NIFE1TAB31 PO (15:10)
[2024-06-14] MEDS ORDERED: ATOR40TA52 PO (15:10)
--- NOTE | 2024-06-14 18:54 | DVHDSRES ---
Discharge Summary Date of Admission Resident Creating Document: BRENDAN PERDOMO RESIDENT Jun 10, 2024 at 22:15 Date of Discharge: Jun 12, 2024 Admitting Diagnosis Hypertensive emergency leading to heart failure Acute on chronic heart failure with mildly reduced ejection fraction History of aortic aneurysm, status post endovascular repair History of hypertension Histories of CVA History of chronic anemia Wounds: none Labs/Diagnostic Data: Laboratory Results Test 06/14/24 06:20 06/13/24 05:39 06/11/24 05:44 06/10/24 11:49 White Blood Count 5.8 10^3/uL (4.4-10.8) Red Blood Count 3.83 10^6/uL (4.0-5.20) Hemoglobin 10.3 g/dL (12.2-16.2) Hematocrit 32.1 % (36.0-46.0) Mean Corpuscular Volume 83.9 fL (80.0-100.0) Mean Corpuscular Hemoglobin 26.9 pg (28.0-32.0) Mean Corpuscular Hemoglobin Concent 32.1 g/dL (32.0-36.0) Red Cell Distribution Width 17.7 % (11.8-14.3) Platelet Count 143 10^3/uL (140-450) Mean Platelet Volume 9.7 fL (6.9-10.8) Neutrophils (%) (Auto) 85.3 % (37.0-80.0) Lymphocytes (%) (Auto) 8.4 % (10.0-50.0) Monocytes (%) (Auto) 3.3 % (0.0-12.0) Eosinophils (%) (Auto) 2.6 % (0.0-7.0) Basophils (%) (Auto) 0.4 % (0.0-2.0) Neutrophils # (Auto) 4.9 10 ^3/uL (1.6-8.6) Lymphocytes # (Auto) 0.5 10 ^3/uL (0.4-5.4) Monocytes # (Auto) 0.2 10 ^3/uL (0-1.3) Eosinophils # (Auto) 0.2 10 ^3/uL (0-0.8) Basophils # (Auto) 0 10 ^3/uL (0-0.2) Nucleated Red Blood Cells 0.2 % Sodium Level 140 mmol/L (136-145) Potassium Level 4.3 mmol/L (3.5-5.1) Chloride Level 106 mmol/L (98-107) Carbon Dioxide Level 27 mmol/L (20-31) Anion Gap 7 (5-15) Blood Urea Nitrogen 21 mg/dL (9-23) Creatinine 1.03 mg/dL (0.550-1.02) Glomerular Filtration Rate Calc 62 mL/min (>90) BUN/Creatinine Ratio 20.4 (10.0-20.0) Serum Glucose 83 mg/dL (74-106) Calcium Level 9.3 mg/dL (8.7-10.4) Total Bilirubin 0.6 mg/dL (0.2-1.0) Aspartate Amino Transferase (AST) 10 U/L (13-40) Alanine Aminotransferase (ALT) < 9 U/L (7-40) Alkaline Phosphatase 70 U/L (46-116) Total Protein 7.0 g/dL (5.7-8.2) Albumin 4.1 g/dL (3.2-4.8) Magnesium Level 2.1 mg/dL (1.6-2.6) B-Type Natriuretic Peptide 520.01 pg/mL (0-100) Prothrombin Time 11.5 sec (9.3-11.8) Prothrombin Time INR 1.09 (0.9-1.15) Activated Partial Thromboplast Time 29.8 SEC (24.5-34.5) Phosphorus Level 4.1 mg/dL (2.4-5.1) Thyroid Stimulating Hormone (TSH) 2.02 uIU/mL (0.55-4.78) Test 06/10/24 11:21 Urine Color Yellow (Yellow) Urine Clarity Clear (Clear) Urine pH 6.0 (5.0-9.0) Urine Specific [place] 1.027 (1.001-1.035) Urine Protein 1+ (Negative) Urine Ketones Trace (Negative) Urine Blood 1+ /uL (Negative) Urine Nitrite Negative (Negative) Urine Bilirubin Negative (Negative) Urine Urobilinogen 3 mg/dL (Negative) Urine Leukocyte Esterase Negative /uL (Negative) Urine RBC 22 /hpf (0 - 4) Urine Microscopic WBC 3 /HPF (0-5) Urine Squamous Epithelial Cells Few /hpf (<5) Urine Bacteria Few /hpf (None Seen) Urine Mucus Few (None Seen) Urine Glucose Normal mg/dL (Normal) Urine Opiates Screen Neg (NEGATIVE) Urine Fentanyl Screen Neg (NEGATIVE) Urine Barbiturates Screen Neg (NEGATIVE) Urine Phencyclidine Screen Neg (NEGATIVE) Urine Amphetamines Screen Neg (NEGATIVE) Urine Benzodiazepines Screen Neg (NEGATIVE) Urine Cocaine Screen Neg (NEGATIVE) Urine Cannabinoids Screen Neg (NEGATIVE) Other Laboratory Tests 06/14/24 06:20 Brief Hx & Hospital Course: Patient is a 59-year-old female with a past medical history of hypertension, thoracic aortic dissection/aneurysm repair in 2019, CVA with residual left-sided weakness, heart failure with mildly reduced ejection fraction 45% according to echo in November 2023 came to the ED with a chief complaint of worsening bilateral lower extremity swelling and shortness of breath. Patient was that about 4 days ago he started to have bilateral lower extremity swelling associated with the dyspnea on exertion and generalized weakness. Patient denied recent flu like symptoms of cough, congestion, fever or chills. Patient denied chest pain, palpitations, nausea, vomiting, abdominal pain. Patient contacted her PCP for bilateral lower extremity swelling who recommended to increase the dose of furosemide but it did not relieve with the symptoms following which she came to the hospital for further evaluation. Past medical history: hypertension, thoracic aortic dissection/aneurysm repair in 2019, CVA with residual left-sided weakness, heart failure with mildly reduced ejection fraction 45%, peripheral neuropathy Past surgical history: Aortic aneurysm/dissection repair, hysterectomy Social history: Patient lives with the family and denies smoking, alcohol, drug use, uses walker for mobility Home medications: Aspirin, furosemide, losartan, metoprolol tartrate Hospital course Patient was admitted to the hospital with a chief complaint of shortness of the breath and bilateral pedal swelling following which she was started on Lasix. Echocardiogram was ordered which reported incidental finding of extensive dissection throughout the visualized descending aorta with flow into lumens, which was not seen on the previous echo in November of 2023. CT angiogram was done which showed descending thoracic aortic dissection with a organ involvement of the ascending aorta and great vessels. Patient has a history of thoracic aortic dissection/aneurysm repair in 2019 at [facility]. Given the finding of descending thoracic aortic dissection, vascular surgeon was consulted. Since the vascular surgeon was not available during the weekend, and not knowing with the dissection was acute or chronic patient was going to be transferred to higher facility but she was not accepted as of Friday. Patient was evaluated by vascular surgeon on Friday who recommended that as the patient was without symptoms currently and the CT demonstrates repair endovascular, patient could go home with strict blood pressure control and follow up with the primary endovascular surgeon once she is discharged. Patient was discharged in stable condition to home. Discharge plan Discharged to home in stable condition Follow up: Follow up in the discharge clinic in 1 week Follow up with the primary endovascular surgeon as soon as possible after discharge. Medications: Patient is sent on metoprolol 50 mg b.i.d., losartan 100 mg q.d., nifedipine 60 mg daily, furosemide 40 mg q.d. p.r.n. Goal SBP less than 130 mmHg Consults/Reason for consult Vesicular surgery consultation for aortic dissection Operations or Procedures CT angio chest with contrast Findings: Chest: Pulmonary Arteries: There are no filling defects within main pulmonary arteries. There is normal dimensional of main PA. Lungs: There is no peripheral pulmonary infarction, consolidation, pleural effusion, or right heart strain. There is no pneumothorax or pneumomediastinum. Aorta: There is a large aortic dissection well visualized on axial images 247 through 31. The dissection demonstrates contrast in both the true and false lumens distally. More proximally, beginning at the level of the mid to distal thoracic aorta, the false lumen demonstrates mild inhomogeneous density although markedly less dense than that of the true lumen. There is no aortic dissection involving the ascending aorta. The right subclavian artery demonstrates no dissection. The origins of the great vessels arising from the aorta demonstrate no dissection. The distal abdominal aorta is not visualized. The renal arteries are not visualized as this is a CT scan of the chest. IMPRESSION: Descending thoracic aortic dissection without involvement of the ascending aorta and great vessels. The dissection extends into the abdominal aorta which is incompletely visualized. CT angiogram of the abdominal aorta is recommended for further assessment. CT abdomen pelvis without IV contrast FINDINGS: LUNG BASES: Unremarkable. No mass. No consolidation. LIVER: Hepatomegaly. GALLBLADDER AND BILE DUCTS: Cholelithiasis. No ductal dilation. PANCREAS: Unremarkable. No ductal dilation. SPLEEN: Unremarkable. No splenomegaly. ADRENALS: Unremarkable. No mass. KIDNEYS AND URETERS: Unremarkable. No obstructing stones. No hydronephrosis. STOMACH AND BOWEL: Fecal retention in the colon consistent with constipation. Colonic diverticulosis without acute diverticulitis. No obstruction. APPENDIX: No findings to suggest acute appendicitis. BLADDER: Unremarkable. No stones. REPRODUCTIVE: Unremarkable as visualized. ABDOMEN and PELVIS: INTRAPERITONEAL SPACE: Unremarkable. No free air. No significant fluid collection. BONES/JOINTS: No acute fracture. No dislocation. SOFT TISSUES: Unremarkable. VASCULATURE: Descending aortic aneurysm with indwelling stent. Contrast extravasation or dissection can not be evaluated. This is not a dedicated CT angiogram. Contrast is noted in the excretory phase and in the urinary bladder. LYMPH NODES: Unremarkable. No enlarged lymph nodes. IMPRESSION: 1. Descending aortic aneurysm with indwelling stent. Contrast extravasation or dissection can not be evaluated. This is not a dedicated CT angiogram. Contrast is noted in the excretory phase and in the urinary bladder. 2. Hepatomegaly. 3. Cholelithiasis. 4. Fecal retention in the colon consistent with constipation. 5. Colonic diverticulosis without acute diverticulitis. Echocardiogram There is extensive dissection throughout the visualized descending aorta with flow into lumens. Normal left ventricular size with low-normal systolic function. Ejection fraction is estimated at 50%. There is likely hypokinesis of the basal and mid posterior wall. Normal right ventricular size and systolic function. [id number] biatrial enlargement. [id number] mitral regurgitation. The jet is eccentric and could be under estimated. [id number] aortic insufficiency. The aortic root is of normal size. The dissection in the descending aorta was not visualized on an echo done in November of 2023; otherwise, there does not appear to be significant change compared to the prior echo. Condition at Discharge: Good Final Diagnosis/Problems List Acute on chronic heart failure with preserved ejection fraction Hypertensive emergency H/o thoracic aortic aneurysm/dissection repair Descending aortic dissection, likely chronic s/p thoracic stent graft placement H/o CVA Normocytic hypochromic anemia Discharge Disposition: Home Discharge Instruct/Medications Diet: Cardiac 2g Na,low cholest Activity: Light activity Follow Up/Referral: Follow up with the PCP in one week Follow up with the research software engineer in 2 weeks Follow up with the primary endovascular surgeon REINALDO after discharge Medications: metoprolol tartarate 50mg bid losartan 100mg daily nifedipine 60mg daily furosemide 40mg daily as needed for leg swelling aspirin 81mg daily Discharge Statement: "Patient was advised to return to the ER or call 911 if any headaches, dizziness, shortness of breath, chest pain, abdominal pain, bleeding, fevers, or worsening of medical condition. Patient was counseled about treatment plan, medications, possible side effects, patientverbalized understanding. All questions were answered to the best of my ability. This discharge took greater then 30 minutes in planning, reviewing documentation, counseling the patient, and discussing with other team members." ASSESSMENT ASSESSMENT Assessment Acute on chronic heart failure with preserved ejection fraction Hypertensive emergency H/o thoracic aortic aneurysm/dissection repair Descending aortic dissection, likely chronic s/p thoracic stent graft placement H/o CVA Normocytic hypochromic anemia Date of Service: Jun 12, 2024 Billing Provider: ARIANNA HICKMAN MD Common Visit Codes: 40277-STY/OBS DISCH DAY >30min BRENDAN PERDOMO RESIDENT Jun 14, 2024 18:54 ARIANNA HICKMAN MD Jun 16, 2024 16:16
== END 2024-06-14 18:00 | disposition home or self-care (01) | DRG 291 ==
LOC: ER 11:07 → OVERFLOW 22:15 → CENTRAL 22:21 → TELE-CENTR 06-11 18:41 → CENTRAL 06-12 14:57 → TELE-CENTR 06-12 16:19
PROVIDERS: ADMIT Student in an Organized Health Care Education/Training Program; ATTEND Student in an Organized Health Care Education/Training Program
DX: I11.0 Hypertensive heart disease with heart failure (principal); I50.23 Acute on chronic systolic (congestive) heart failure; I69.354 Hemiplegia and hemiparesis following cerebral infarction affecting left non-dominant side; I16.1 Hypertensive emergency; D50.9 Iron deficiency anemia, unspecified; G62.9 Polyneuropathy, unspecified; Z80.8 Family history of malignant neoplasm of other organs or systems; Z90.711 Acquired absence of uterus with remaining cervical stump; Z86.79 Personal history of other diseases of the circulatory system; Z79.899 Other long term (current) drug therapy
CPT/HCPCS: 36415; 71045; 71275; 74176; 80048; 80053; 80307; 81001; 83735; 83880; 84100; 84443; 85025; 85610; 85730; 93005; 93306; 93971; 96374; G0378; J1100; J1885; J2003; J2250; J2405; J2704

== ENCOUNTER → 2024-06-29 | Outpatient (CLI) | payer OTHER, MEDICAID ==
[~2024-06-29] MED LIST changes: +ATOR40TA52 PO; -FURO1TAB33 PO; +FURO40TA4 PO; +METO-158 PO; -METO25TA5 PO; +NIFE1TAB31 PO
[2024-06-29 11:08] LABS: Basophils # (auto) 0.1 10 ^3/uL (0-0.2); Eosinophils # (auto) 0 10 ^3/uL (0-0.8); Hemoglobin 9.9 g/dL (12.2-16.2); Monocytes # (auto) 0.4 10 ^3/uL (0-1.3); Nucleated Red Blood Cells % 0.1 %; Red Cell Distribution Width 17.8 % (11.8-14.3)
[2024-06-29 11:10] LABS: Basophils % (auto) 1.2 % (0.0-2.0); Eosinophils % (auto) 0.9 % (0.0-7.0); Hematocrit 31.6 % (36.0-46.0); Lymphocytes # (auto) 1.3 10 ^3/uL (0.4-5.4); Lymphocytes % (auto) 27.4 % (10.0-50.0); Mean Corpuscular Hemoglobin 26.2 pg (28.0-32.0); Mean Corpuscular Hgb Conc. 31.3 g/dL (32.0-36.0); Mean Corpuscular Volume 83.8 fL (80.0-100.0); Monocytes % (auto) 8.5 % (0.0-12.0); Platelet Count (auto) 166 10^3/uL (140-450); Red Blood Cells 3.77 10^6/uL (4.0-5.20); White Blood Cell 4.8 10^3/uL (4.4-10.8)
[2024-06-29 12:09] LABS: Albumin 3.7 g/dL (3.2-4.8); Anion Gap 6 (5-15); Bilirubin, Total 0.5 mg/dL (0.2-1.0); Blood Urea Nitrogen 17 mg/dL (9-23); Calcium 9.5 mg/dL (8.7-10.4); Carbon Dioxide 28 mmol/L (20-31); Chloride 106 mmol/L (98-107); Glucose 84 mg/dL (74-106); Potassium 4.4 mmol/L (3.5-5.1); Sodium 140 mmol/L (136-145); Total Protein 6.4 g/dL (5.7-8.2)
[2024-06-29 12:34] LABS: Alkaline Phosphatase 65 U/L (46-116)
[2024-06-29 12:36] LABS: Alanine Aminotransferase < 9 U/L (7-40); Aspartate Aminotransferase 10 U/L (13-40)
[2024-06-30 13:15] LABS: Triglycerides 46 mg/dL (< 150)
[2024-06-30 13:16] LABS: Cholesterol 108 mg/dL (< 200); LDL Cholesterol 23 mg/dL (< 100)
[2024-06-30 13:25] LABS: HDL Cholesterol 67 mg/dL (40-59)
== END | disposition home or self-care (01) ==
LOC: LAB 10:49
DX: I50.9 Heart failure, unspecified (principal); N18.2 Chronic kidney disease, stage 2 (mild); D63.1 Anemia in chronic kidney disease; I25.2 Old myocardial infarction; I79.0 Aneurysm of aorta in diseases classified elsewhere; E78.5 Hyperlipidemia, unspecified; R39.81 Functional urinary incontinence; R53.2 Functional quadriplegia
CPT/HCPCS: 36415; 80053; 80061; 85025

== ENCOUNTER 2024-08-06 05:49 | Emergency (ER) | payer OTHER, MEDICAID ==
[~2024-08-06] VITALS: Ht 170.2 cm; Wt 60.0 kg
[2024-08-06 06:38] VITALS: BP 134/70; PULSE 75; RESP 17; TEMP 98.4; O2SAT 94
--- NOTE | 2024-08-06 06:45 | ED.PDOC ---
Musculoskeletal HPI Comments A 59 YEAR OLD FEMALE PRESENTS TO THE ED WITH COMPLAINT OF LEFT KNEE PAIN AND LEFT KNEE PAIN S/P FALL. PATIENT STATES SHE HIT THE DOOR 2 DAYS AGO AND ACCIDENTALLY FELL AND HIT HER LEFT KNEE ON THE GROUND AND INJURED HER LEFT ANKLE. PATIENT REPORTS SHE IS NOW EXPERIENCING LEFT KNEE PAIN AND LEFT ANKLE PAIN. PATIENT ALSO NOTES THAT SHE HAS A HISTORY OF CHF AND HAS CHRONIC EDEMA OF HER BILATERAL LOWER EXTREMITIES, BUT NOTES THIS IS NOT PART OF HER COMPLAINT TODAY. PATIENT DENIES HEAD INJURY, NECK INJURY, LOC, FEVER, CHILLS, SHORTNESS OF BREATH, CHEST PAIN, ABDOMINAL PAIN, NAUSEA, VOMITING, HEADACHE, OR OTHER COMPLAINTS. NO OTHER SYMPTOMS OR MODIFYING FACTORS AT THIS TIME. PATIENT IS ALERT, ORIENTED X 4, AND HAS STEADY GAIT. Chief Complaint: Fall Injury Time Seen by MD: 06:22 Primary Care Provider: JENNIFER Reviewed Notes: Nurses Notes, Medications, Allergies Allergies: Coded Allergies: Diphenhydramine (Verified Allergy, Unknown, 01/06/24) Iodine (Verified Allergy, Unknown, 01/06/24) Penicillins (Verified Allergy, Unknown, 01/06/24) Home Meds Active Scripts Acetaminophen (Tylenol 8 Hour Arthritis) 650 Mg Tab, 650 MG PO TID, #30 TAB Prov:KALEN FRIEDMAN 08/06/24 Atorvastatin Calcium (ATORVASTATIN CALCIUM) 40 Mg Tab, 40 MG PO HS for 30 Days, #30 TAB 0 Refills Prov:BRENDAN PERDOMO 06/14/24 Furosemide (Furosemide) 40 Mg Tab, 40 MG PO DAILY PRN for 30 Days, #30 TAB 0 Refills Prov:BRENDAN PERDOMO 06/14/24 Nifedipine (Nifedipine Er) 30 Mg Tab, 60 MG PO DAILY for 30 Days, #60 TAB 0 R efills Prov:BRENDAN PERDOMO 06/14/24 Losartan Potassium (Losartan Potassium) 50 Mg Tab, 100 MG PO DAILY for 30 Days, #60 TAB 0 Refills Prov:BRENDAN PERDOMO 06/14/24 Metoprolol Tartrate (Metoprolol Tartrate) 50 Mg Tab, 50 MG PO BID for 30 Days, #60 TAB 0 Refills Prov:BRENDAN PERDOMO 06/14/24 Aspirin (Aspir-81) 81 Mg Tab, 1 TAB PO DAILY for 30 Days, #30 TAB 5 Refills Prov:BRENDAN PERDOMO RESIDENT 06/14/24 Information Source: Patient Mode of Arrival: Ambulatory Location: Left Extremity Location: Ankle, Knee Timing: Days Prehospital treatment: None Severity: Moderate Able to Move Extremity: Yes Bear Weight: Fully Pain: Moderate Mechanism: Blunt Trauma Circumstances: Fall Onset of Symptoms: After Trauma Symptoms: Swelling, Pain DVT Risk Factors: NONE Last Tetanus: UTD, Unknown Associated signs and symptoms: Knee pain, Ankle pain Past Medical History PAST MEDICAL HISTORY: CHF, CVA, HTN, Thyroid Surgical History: Hysterectomy CHANCERY CLERK History: Denies all CHANCERY CLERK Hx Family History Family History: Reviewed,noncontributory to illness, Family hx of Cancer Social History Smoker: Non-Smoker Alcohol: Denies ETOH Use Drugs: Denies Drug Use Lives In: Home Constitutional: denies: chills, diaphoresis, fatigue, fever, malaise, sweats, weakness, others EENTM: denies: blurred vision, double vision, ear bleeding, ear discharge, ear drainage, ear pain, ear ringing, eye pain, eye redness, hearing loss, mouth pain, mouth swelling, nasal discharge, nose bleeding, nose congestion, nose pain, photophobia, tearing, throat pain, throat swelling, voice changes, others Respiratory: denies: cough, hemoptysis, orthopnea, SOB at rest, shortness of breath, SOB with excertion, stridor, wheezing, others Cardiovascular: denies: chest pain, dizzy spells, diaphoresis, Dyspnea on exertion, edema, irregular heart beat, left arm pain, lightheadedness, palpitations, PND, syncope, others Gastrointestinal: denies: abdomen distended, abdominal pain, blood streaked bowels, constipated, diarrhea, dysphagia, difficulty swallowing, hematemesis, m michael, nausea, poor appetite, poor fluid intake, rectal bleeding, rectal pain, vomiting, others Genitourinary: denies: abnormal vagina bleeding, burning, dyspareunia, dysuria, flank pain, frequency, hematuria, incontinence, pain, , vagina discharge, urgency, others Neurological: denies: dizziness, fainting, headache, left sided numbness, left sided weakness, numbness, paresthesia, pre-existing deficit, right sided numbness, right sided weakness, seizure, speech problems, tingling, tremors, weakness, others Musculoskeletal: reports: joint pain, joint swelling, others (LEFT KNEE PAIN, LEFT ANKLE PAIN); denies: back pain, gout, muscle pain, muscle stiffness, neck pain Integumetry: denies: bruises, change in color, change in hair/nails, dryness, laceration, lesions, lumps, rash, wounds, others Allergic/Immunocompromised: denies: Difficulty Healing, Frequent Infections, Hives, Itching, others Hematologic/Lymphatic: denies: anemia, blood clots, easy bleeding, easy bruising, swollen glands, others Endocrine: denies: excessive hunger, excessive sweating, excessive thirst, excessive urination, flushing, intolerance to cold, intolerance to heat, unexplained weight gain, unexplained weight loss, others Psychiatric: denies: anxiety, bipolar disorder, depression, hopeless, panic di sorder, schizophrenia, sleepless, suicidal, others All Other Systems: Reviewed and Negative Physical Exam General Appearance: No Apparent Distress, Normal HEENT: Normal ENT Inspection, PERRL/EOMI, Pharynx Normal, TMs Normal Neck: Full Range of Motion, Non-Tender, Normal, Normal Inspection Respiratory: Chest Non-Tender, Lungs Clear, No Accessory Muscle Use, No Respiratory Distress, Normal Breath Sounds Cardiovascular: No Edema, No JVD, No Murmur, No Gallop, Normal Peripheral Pulses, Regular Rate/Rhythm Breast Exam: Deferred Gastrointestinal: No Organomegaly, Non Tender, No Pulsatile Mass, Normal Bowel Sounds, Soft Genitalia: Deferred Pelvic: Deferred Rectal: Deferred Extremities: Decreased range of motion (SLIGHTLY. ), No calf tenderness, Normal capillary refill, No pedal edema, Swelling (BONY TENDERNESS AND SWELLING ON LEFT ANKLE, NO DEFORMITY AND OPEN WOUND. ), Tender (AND MILD EFFUSION ON LEFT KNEE, NO BONY TENDERNESS AND DEFORMITY. ), Other (NO REDNESS AND SWELLING ON LEFT LOWER LEG, NO DVT SIGNS. ) Musculoskeletal : Apperance: Normal Neurologic: Alert, evidence specialist II-XII nml as Tested, No Motor Deficits, Normal Affect, Normal Mood, No Sensory Deficits Cerebellar Function: Normal Reflexes: Normal Skin: Dry, Normal Color, Warm Peripheral Pulses: 2+ carotid (R), 2+ carotid (L), 2+ dorsalis pedis (R), 2+ dorsalis pedis (L) Lymphatic: No Adenopathy Was a procedure done? Was a procedure done?: No Differential Diagnosis EXT Differential Diagnosis: Fracture, Sprain, Dislocation, DJD, Contusion, Strain, Arthritis X-Ray, Labs, Meds, VS Vital Signs Date Time Temp Pulse Resp B/P (MAP) Pulse Ox O2 Delivery O2 Flow Rate FiO2 08/06/24 06:38 98.4 75 17 134/70 (91) 94 98.4 08/06/24 06:38 75 17 94 Room Air 08/06/24 05:55 97.7 89 16 108/60 (76) 97 97.7 Current Medications Medications (Trade) Dose Ordered Sig/Darlene Route Start Time Stop Time Status Last Admin Acetaminophen/ Hydrocodone Bitart (Merom 5/325MG Tab) 1 tab ONCE ONCE PO 08/06/24 07:15 08/06/24 07:16 DC 08/06/24 07:15 EXAM: XY L KNEE 3V XRAY HISTORY: FALL COMPARISON: None TECHNIQUE: 3 views of the left knee were performed. FINDINGS: Bones are demineralized. No acute fracture is identified about the left knee. Medial and lateral joint space narrowing. Tricompartment osteophytes. Soft tissue swelling in the ankle. IMPRESSION: 1. No fracture or dislocation. Soft tissue swelling. ATED BY: CARLA CAMPBELL MD DICTATED DATE/TIME: 08/06/24 0707 SIGNED BY: CARLA CAMPBELL MD SIGNED DATE/TIME: 08/06/24 0707 CC: PROCEDURE: Left ankle radiographs. INDICATION: FALL TECHNIQUE: Frontal, lateral and oblique views of the left ankle were obtained. COMPARISON: None FINDINGS: The bones are demineralized which limits evaluation. There is a nondisplaced medial malleolus fracture there is marked soft tissue swelling especially about the lateral ankle. IMPRESSION: 1. Nondisplaced medial malleolus fracture. CT of the left ankle without intravenous contrast is recommended for further evaluation to exclude additional fractures given the marked degree of soft tissue swelling in the lateral aspect of the ankle. ATED BY: CARLA CAMPBELL MD DICTATED DATE/TIME: 08/06/24 0706 SIGNED BY: CARLA CAMPBELL MD SIGNED DATE/TIME: 08/06/24 0706 CC: X-Ray, Labs, Meds, VS Comment EXTERNAL MEDICAL RECORDS REVIEWED: [NONE] INDEPENDENT HISTORIANS: [NONE] SOCIAL DETERMINANTS OF HEALTH: [NONE] LABS ORDERED: NONE REVIEWED AND INTERPRETED RESULTS: NONE IMAGING ORDERED: XR KNEE LT, XR ANKLE LT TREATMENTS ORDERED: ANKLE STIRRUP SPLINT APPLIED TO PATIENT'S LEFT ANKLE. NORCO 5/325MG PO PROCEDURES PERFORMED: NONE CRITICAL CARE TIME: NONE I HAVE DISCUSSED THE PATIENT WITH THE ATTENDING PHYSICIAN DR. DAVIDSON AND HE AGREES WITH THE PATIENT'S PLAN OF CARE AND DISPOSITION. BASED ON HISTORY OF PRESENT ILLNESS, AND PHYSICAL EXAM, PATIENT WILL BE DISCHARGED HOME. DISCUSSED PLAN FOR DISCHARGE HOME WITH RX [TYLENOL 500MG]. MEDICATION WARNINGS GIVEN. SHARED DECISION MAKING: PATIENT INSTRUCTED TO FOLLOW UP WITH PRIMARY CARE PROVIDER IN 1-2 DAYS FOR RE-EVALUATION OF SYMPTOMS. PATIENT VERBALIZES UNDERSTANDING TO RETURN TO ED FOR NEW OR WORSENING SYMPTOMS OR IF FOLLOW UP WITH PCP CANNOT BE OBTAINED. PATIENT FEELS COMFORTABLE GOING HOME AT THIS TIME. ALL QUESTIONS ADDRESSED AT TIME OF DISCHARGE. Images Reviewed?: Images reviewed and evaluated by me Time of 1ST Reevaluation: 07:35 Reevaluation 1ST: Improved Patient Education/Counseling: Diagnosis, Treatment, Need For Follow Up Family Education/Counseling: Diagnosis, Treatment, Need For Follow Up Medical Screening: No EMC Exist At This Time Departure 1 Departure Time of Disposition: 07:35 Impression: Primary Impression: Fracture of medial malleolus, left, closed Qualified Codes: S82.55XA - Nondisplaced fracture of medial malleolus of left tibia, initial encounter for closed fracture Additional Impressions: Degenerative joint disease of left knee Qualified Codes: M17.12 - Unilateral primary osteoarthritis, left knee Status post fall Disposition: 01 HOME / SELF CARE / HOMELESS Condition: Stable Additional Instructions: FOLLOW-UP WITH PCP IN 1 TO 2 DAYS FOR REFERRAL TO TRANSPORTATION MAINTENANCE SPECIALIST. TAKE MEDICATIONS PRESCRIBED. RETURN TO ED FOR ANY NEW OR WORSENING SYMPTOMS. e-Prescriptions Acetaminophen (Tylenol 8 Hour Arthritis) 650 Mg Tab 650 MG PO TID, #30 TAB Prov: KALEN FRIEDMAN 08/06/24 Discharged With: Self Critical Care Note Critical Care Time?: No Stability Stability form required: No I personally scribed for KALEN FRIEDMAN ([email or web address]) on 08/06/24 at 06:45. Electronically submitted by Enrique Fenton ([email or web address]). I personally scribed for KALEN FRIEDMAN ([email or web address]) on 08/06/24 at 07:13. Electronically submitted by Enrique Fenton ([email or web address]). I personally scribed for KALEN FRIEDMAN ([email or web address]) on 08/06/24 at 07:17. Electronically submitted by Enrique Fenton ([email or web address]). I personally scribed for KALEN FRIEDMAN ([email or web address]) on 08/06/24 at 07:22. Electronically submitted by Enrique Fenton ([email or web address]). KALEN FRIEDMAN Aug 06, 2024 06:45
--- NOTE | 2024-08-06 07:09 | DVH ---
EXAM: XY L KNEE 3V XRAY HISTORY: FALL COMPARISON: None TECHNIQUE: 3 views of the left knee were performed. FINDINGS: Bones are demineralized. No acute fracture is identified about the left knee. Medial and lateral marianna nt space narrowing. Tricompartment osteophytes. Soft tissue swelling in the ankle. IMPRESSION: 1. No fracture or dislocation. Soft tissue swelling.
--- NOTE | 2024-08-06 07:09 | DVH ---
PROCEDURE: Left ankle radiographs. INDICATION: FALL TECHNIQUE: Frontal, lateral and oblique views of the left ankle were obtained. COMPARISON: None FINDINGS: The bones are demineralized which limits evaluation. There is a nondisplaced medial malleo gail fracture there is marked soft tissue swelling especially about the lateral ankle. IMPRESSION: 1. Nondisplaced medial malleolus fracture. CT of the left ankle without intravenous contrast is recom mended for further evaluation to exclude additional fractures given the marked degree of soft tissue swelling in the lateral aspect of the ankle.
[2024-08-06] MEDS: HYDROcodone-ACET 5/325MG TAB PO ONE (07:15)
[2024-08-06] MEDS ORDERED: ACET-1080 PO (07:31)
== END 2024-08-06 07:38 | disposition home or self-care (01) ==
LOC: ER 05:49
DX: S82.55XA Nondisplaced fracture of medial malleolus of left tibia, initial encounter for closed fracture (principal); M17.12 Unilateral primary osteoarthritis, left knee; I11.0 Hypertensive heart disease with heart failure; I50.9 Heart failure, unspecified; Z79.82 Long term (current) use of aspirin; Z79.899 Other long term (current) drug therapy; Z90.710 Acquired absence of both cervix and uterus; Z91.041 Radiographic dye allergy status; Z88.0 Allergy status to penicillin; Z88.8 Allergy status to other drugs, medicaments and biological substances; W22.8XXA Striking against or struck by other objects, initial encounter; Y93.89 Activity, other specified; Y92.89 Other specified places as the place of occurrence of the external cause; Y99.8 Other external cause status
CPT/HCPCS: 29515; 73562; 73610